=== PATIENT | male | born 1980 | race Caucasian/White ===

== ENCOUNTER 2023-05-12 06:33 | Inpatient (IN) | payer OTHER, SELFPAY ==
[2023-05-12] VITALS (48 sets, daily range): BP systolic 93–147; BP diastolic 64–116; PULSE 83–196; RESP 20–46; TEMP 36.4–36.9; O2SAT 84–99; BMI 37.9
--- NOTE | ~2023-05-12 | XR_ITS ---
Portable chest x-ray Comparison: None Clinical History: Dyspnea Findings: There is extensive hazy and interstitial pulmonary disease, most compatible with mild-to-m oderate pulmonary edema. No pleural effusion or pneumothorax. Cardiomediastinal silhouette is stable . Bones and soft tissues are unremarkable. Impression: Mild to moderate probable pulmonary edema pattern. Correlate for superimposed pneumonia or underlying chronic interstitial disease. Reviewed, dictated and finalized at location . Impression: Mild to moderate probable pulmonary edema pattern. Correlate for superimposed p neumonia or underlying chronic interstitial disease.
--- NOTE | ~2023-05-12 | US_ITS ---
EXAMINATION: US venous doppler [facility] DATE: 05/19/2023 15:34 INDICATION: Scrotal swelling. Recent dyspnea. TECHNIQUE: Grayscale ultrasound images without and with compression and Doppler ultrasound images of the bilateral lower extremity veins were obtained. COMPARISON: None. FINDINGS: The visualized portions of right common femoral vein, profunda (deep) femoral vein, femoral vein, pop liteal vein, posterior tibial veins, peroneal veins, gastrocnemius vein and greater saphenous vein ou tflow are patent. The visualized portions of left common femoral vein, profunda femoral vein, femoral vein, popliteal v ein, posterior tibial veins, peroneal veins, gastrocnemius vein and greater saphenous vein outflow ar e patent. IMPRESSION: 1. No deep venous thrombosis in either lower limb. Reviewed, dictated and finalized at location A.
--- NOTE | ~2023-05-12 | US_ITS ---
EXAMINATION: US scrotum doppler DATE: 05/19/2023 15:34 INDICATION: Scrotal swelling TECHNIQUE: Testicular sonogram utilizing grayscale and Doppler COMPARISON: None. FINDINGS: The right testis measures 4 x 1.7 x 3.1 cm. The left testis measures 3.7 x 2.4 x 2.1 cm. Th ere is a 7 mm cyst or spermatocele of the right epididymal head. There is normal vascular flow to bot h testes. The left epididymis is normal with normal vascular flow. There is a large right inguinal he rnia containing fluid and bowel. IMPRESSION: 1. Large right inguinal hernia containing fluid and bowel. Reviewed, dictated and finalized at location B.
--- NOTE | ~2023-05-12 | XR_ITS ---
Portable chest x-ray Comparison: 05/12/2023 Clinical History: CHF Findings: There is mild interstitial pulmonary edema pattern, improved from prior exam. No definite pleural effusion. Cardiomediastinal silhouette is stable. Bones and soft tissues are unremarkable. Impression: Mild interstitial pulmonary edema pattern, improved from prior exam. Reviewed, dictated and finalized at [facility]. Impression: Mild interstitial pulmonary edema pattern, improved from prior exam.
--- NOTE | 2023-05-12 06:41 | ECG_ITS ---
Measurements Intervals [place] Rate: 160 P: ND: 0 QRS: 25 QRSD: 109 T: 153 QT: 297 QTc: 484 Interpretive Statements ATRIAL FIBRILLATION WITH RAPID VENTRICULAR RESPONSE NONSPECIFIC ST & T-WAVE ABNORMALITY- DIFFUSE LEADS BASELINE ARTIFACT- I, II, AVR, AVL, AVF, V2-V4 ABNORMAL ECG NO PREVIOUS ECG AVAILABLE FOR COMPARISON Electronically Signed On 05-12-2023 6:55:00 CDT by Addy Roberts D.O.
--- NOTE | 2023-05-12 06:48 | ED.GENADULT ---
HPI - General Adult General Chief complaint: Shortness of Breath/Dyspnea <Felice Boyer MD - Last Filed: 05/12/23 06:50> Stated complaint: SOB <Felice Boyer MD - Last Filed: 05/12/23 06:50> Time Seen by Provider: 05/12/23 06:48 <Felice Boyer MD - Last Filed: 05/12/23 06:50> History of Present Illness HPI narrative: Patient 42-year-old gentleman who presents the emergency department with chief complaint of shortness of breath. Patient has prior history of fentanyl abuse and reports that today started getting very short of breath. The patient reports that he is having no chest pain but reports he just feels as though he just cannot get a good deep breath. EMS was called and found that it had a heart rate of in the 200s they gave him 5 mg of Lopressor in the field the patient does deny that he uses any cocaine. Patient reports that he does not do IV drugs and only does fentanyl by insufflation. Patient denies prior history of endocarditis or congestive heart failure <Felice Boyer MD - Last Filed: 05/12/23 06:50> Related Data Home medications: Home Medications Medication Instructions Recorded Confirmed No Home Medications 05/12/23 05/12/23 <Felice Boyer MD - Last Filed: 05/12/23 06:50> Allergies/adverse reactions: Allergies Allergy/AdvReac Type Severity Reaction Status Date / Time No Known Allergies Allergy Verified 05/12/23 06:58 <Felice Boyer MD - Last Filed: 05/12/23 06:50> Review of Systems Review of Systems: A 10 system review of systems was completed on the patient and is negative except for what is stated in the HPI. Nursing and ancillary documentation was reviewed. <Felice Boyer MD - Last Filed: 05/12/23 06:50> [facility] Past Medical History Medical History: Medical History (Updated 05/13/23 @ 11:11 by Claudia Diane MD) Alcohol abuse Depression with anxiety Elevated troponin Fentanyl use disorder, mild, abuse Hypertension Insomnia Left knee injury Nicotine abuse Pneumonia Psoriasis <Felice Boyer MD - Last Filed: 05/12/23 06:50> Surgical History Surgical History: Surgical History (Updated 05/12/23 @ 19:24 by Bonny King NP) H/O hernia repair <Felice Boyer MD - Last Filed: 05/12/23 06:50> Family History Family History: Family History (Updated 05/12/23 @ 19:25 by Bonny King NP) Unknown No problems noted. <Felice Boyer MD - Last Filed: 05/12/23 06:50> Social History Social History: Social History (Updated 05/12/23 @ 19:27 by Bonny King NP) Social History: The patient has 2 children. He lives alone and is . Patient is currently unemployed. He has a past history of fentanyl abuse. The patient continues to smoke at least a pack a cigarettes a day. The patient stated that he did not use any IV drugs rather he smoked them are started them. He denies any recent cocaine use. The patient admits to drinking 5 and half drinks of whiskey 3 times a week. He does not have a durable power floor scraper for healthcare Code status full code Smoking packs per day: 1 Smoking cigarettes per day: 20.0 Years smoked: 28 Smoking pack-years: 28.00 Smoking status: Current every day smoker Tobacco type: cigarettes Drinks per week: 60 Substance use: current Substance use type: marijuana Other substance usage details: 12 shots of 99proof wiskey every other day. Last use: MJ few weeks ago. ETOH 05/10/23 Lack of Transportation: No Lack of Food: Often True Current Housing: I Have Housing Concerned About Future Housing: YES Difficulty Paying Gas/Electric Bills: No Difficulty Paying for Meds: No Currently Unemployed: YES Education: Grade School Difficulty w/ Childcare or Family Care: No Spiritual care concerns: No <Felice Boyer MD - [facility]
[2023-05-12] MEDS: dilTIAZem HCl INJ 25 MG/5 ML VIAL 20 MG IV PUSH (06:54)
[2023-05-12 06:56] LABS: Basophils Absolute Auto 0.1 K/mm3 (0.0-0.1); Basophils Percent Auto 0.4 % (0.2-1.2); Eosinophils Absolute Auto 0.1 K/mm3 (0-0.3); Eosinophils Percent Auto 0.4 % (0-4.4); Hematocrit 42.3 % (42.0-52.0); Hemoglobin 14.2 g/dL (14.0-18.0); Immature Granulocyte Absolute 0.07 K/mm3 (0.00-0.031); Immature Granulocyte Percent A 0.5 % (0-0.5); Lymphocytes Absolute Auto 2.47 K/mm3 (0.9-3.2); Lymphocytes Percent Auto 17.8 % (18.3-44.2); Mean Corpuscular HGB Conc 33.6 g/dl (32-36); Mean Corpuscular Hemoglobin 36.4 pg (26-34); Mean Corpuscular Volume 108.5 fl (80-100); Mean Platelet Volume 12.4 fl (7.4-10.4); Monocytes Absolute Auto 0.7 K/mm3 (0.1-0.6); Monocytes Percent Auto 5.2 % (2.6-8.5); Neutrophils Absolute Auto 10.5 K/mm3 (1.3-6.7); Neutrophils Percent Auto 75.7 % (45.5-73.1); Platelet Count Result 161 k/mm3 (150-375); Red Cell Distribution Width 17.7 % (11.5-14.5); White Blood Count 13.9 K/mm3 (4.5-10.0)
[2023-05-12] MEDS: dilTIAZem 100 MG/100 ML 100 MG/100 ML BAG IV CONT (06:56)
[2023-05-12 07:06] LABS: Alveolar/Arterial O2 Gradient 172.3 mmHg; Base Excess ABG -4.8 mEq/l (+/-2.0); Fractional Inspired Oxygen 50 %; HCO3 ABG 18.1 mEq/l (22.0-26.0); Oxygen Content ABG 20.8 %vol (16.0-22.0); Oxyhemoglobin 95.7 % THb (90.0-100.0); PCO2 ABG 28.4 mmHg (35.0-45.0); PO2 ABG 152.3 mmHg (80.0-100.0); PO2 FiO2 Ratio Arterial Blood 3.05 %; Total Hemoglobin 15.3 g/dL (12.0-18.0); pH ABG 7.422 (7.350-7.450)
[2023-05-12 07:07] LABS: Device NON-INVASIVE VENT; Modified Allen's Test Pass; Non-Invasive Expiratory Pressure 7 CMH2O; Non-Invasive Inspiratory Pressure 14 CMH2O; Non-Invasive Vent Rate 16 /MIN; Site Drawn RIGHT RADIAL
[2023-05-12] MEDS: FUROSEMIDE INJ 40 MG/4 ML VIAL IV PUSH (07:07)
[2023-05-12 07:08] LABS: Alanine Aminotransferase 34 U/L (6-50); Albumin Level 3.7 g/dL (3.5-5.1); Alkaline Phosphatase 201 U/L (38-126); Anion Gap 18 mmol/L (8-16); Aspartate Amino Transferase 109 U/L (17-59); Blood Urea Nitrogen 6 mg/dL (9-20); Calcium 8.2 mg/dL (8.4-10.2); Carbon Dioxide 16 mmol/L (22-30); Chloride 104 mmol/L (98-107); Estimated CRCL calculation 130 ml/min; Estimated Glomerular Filt Rate > 60; Glucose 142 mg/dL (65-110); Magnesium 1.2 mg/dL (1.6-2.3); Potassium 3.4 mmol/L (3.4-5.0); Sodium 138 mmol/L (137-145)
[2023-05-12 07:10] LABS: INR 1.8; Prothrombin Time 21.6 Seconds (11.1-14.7)
[2023-05-12 07:11] LABS: Partial Thromboplastin Time 33.8 SECONDS (22.3-36.8)
[2023-05-12 07:19] LABS: NT Pro B Type Natriuretic Pept 24800 pg/mL (19.9-100)
[2023-05-12] MEDS: NITROGLYCERIN OINTMENT 1 INCH DOSE TRANSDERM ×3 (07:25→18:08)
[2023-05-12] MEDS: FUROSEMIDE INJ 40 MG/4 ML VIAL 60 MG IV PUSH (07:26)
--- NOTE | 2023-05-12 07:36 | PC.NURSE ---
This RN took over for patient at 0700. Upon initial assessment, pt short of breath at rest on bipap. Pt with labored breathing, accessory muscle use, retractions present. RR 48/min. Pt appeared tired, respiratory rate was becoming irregular. Pt was on dilt drip and was saying to RN that he was still having trouble breathing. Left lung very coarse, right side clear. RN concerned of patient condition, spoke with MD Cardenas who came to bedside. Bipap settings changed to 16/8, patient given additional furosemide, Diltiazem drip stopped at 07:20am per MD Cardenas. Nitro paste applied. Following change of bipap settings, pt a little more comfortable breathing. Rate now 39/min, pt verbalized slight improvement in work of breathing. Explained treatment plan to patient who verbalized understanding. Call light in patient's hand.
[2023-05-12 07:44] LABS: Procalcitonin 0.1 ng/mL
[2023-05-12 07:48] LABS: Influenza A QL RT-PCR Negative (Negative); Influenza B QL RT-PCR Negative (Negative); RSV RNA, RT-PCR Negative (Negative); SARS-CoV-2 RNA PCR Negative (Negative)
[2023-05-12] MEDS: dilTIAZem HCl INJ 25 MG/5 ML VIAL 15 MG IV PUSH (08:02)
[2023-05-12] MEDS: LORazepam INJ (*CRX) 2 MG/ML VIAL 1 MG IV PUSH (08:20)
--- NOTE | 2023-05-12 08:33 | PC.NURSE ---
Pt urinated 350ml via urinal. Asked patient about home medications, patient reports he knows he is supposed to take medications for high blood pressure and for depression, however he has no idea what medications he is supposed to be on. Reports he has not taken any medications for many years . MD Cardenas made aware, plan for Lovenox.
[2023-05-12] MEDS: ENOXAPARIN 120 MG/0.8 ML SYRINGE 110 MG SUB-Q (08:43)
[2023-05-12 09:21] LABS: Appearance Urine Clear (Clear); Bacteria Urine None Seen /hpf; Bilirubin Urine Negative (Negative); Blood Urine Negative (Negative); Color Urine Yellow (Yellow); Glucose Urine UA Negative (Negative); Ketones Urine Negative (Negative); Leukocyte Esterase Ur Negative LEU/UL (Negative); Nitrate Urine Negative (Negative); Non Pathogenic Casts 0-2; Protein Urine 1+ mg/dL (Negative); RBC Urine 0-2 /hpf (0-2); Specific Grav Ur 1.006 (1.001-1.035); Squamous Epithelial Cell Urine None seen /hpf (Few); Urobilinogen Urine 0.2 mg/dL (<2.0); WBC Urine 0-5 /hpf; pH Urine 5.5 (5.0-9.0)
[2023-05-12 09:22] LABS: Amphetamine Screen Urine Negative (Negative); Barbiturate Screen Urine Negative (Negative); Benzodiazepines Screen Urine Negative (Negative); Cannabinoid Screen Urine Negative (Negative); Cocaine Screen Urine Negative (Negative); Methadone Screen Urine Negative (Negative); Opiate Screen Urine Negative (Negative); Phencyclidine Screen Urine Negative (Negative)
[2023-05-12 09:25] LABS: Add Urine Microscopic? YES
--- NOTE | 2023-05-12 09:29 | PC.NURSE ---
Attempted to call report, RN will return call when she gets off the phone.
--- NOTE | 2023-05-12 09:44 | PC.NURSE ---
Pt appears comfortable, breathing is unlabored, able to speak short sentences with bipap on. Pt has phone in hand, asked RN to turn light off. Per MD Cardenas, do not increase diltiazem drip at this time, plan for cardiology consult.
[2023-05-12 09:54] LABS: Reflex Lactic Acid Yes or No Add Lactic
--- NOTE | 2023-05-12 10:07 | ADMGEN ---
This patient, Vincent Rivera, was admitted to Virtual Bed IMU-1. Patient/family oriented to hospital policies and general routines including ID bracelet, bed and alarms, visiting hours, pain management, procedures, bathroom and other care routines, personal items, smoking policy, room service/diet, and visiting hours. Information on how to activate the Rapid Response Team has been discussed. Patient/Family are encouraged to report perceived risks to care and to ask questions if they do not understand what they are told or what they should do.
[2023-05-12 10:20] LABS: Troponin I 0.058 ng/mL (0.000-0.034)
[2023-05-12 10:45] LABS: Lactic Acid 4.5 mmol/L (0.7-2.0)
[2023-05-12] MEDS: ONDANSETRON INJ 4 MG/2 ML VIAL IV PUSH (11:52)
[2023-05-12 13:04] LABS: Lactic Acid Reflex 3.7 mmol/L (0.7-2.0)
--- NOTE | 2023-05-12 13:08 | PM.CNCAR ---
Assessment and Plan Assessment and plan (1) Congestive heart failure: Qualifiers: Heart failure chronicity: unspecified Heart failure type: unspecified Qualified Code(s): I50.9 - Heart failure, unspecified Code(s): I50.9 - Heart failure, unspecified Status: Acute Assessment and Plan: Presents with acute onset of shortness of breath, CXR showing pulmonary [place]. [place] [address]. Symptomatic improvement after receiving IV furosemide, nitroglycerin, and BiPAP support. Continue diuresis with IV furosemide 40mg b.i.d. 2D echo with Doppler Supplemental O2 as needed Strict I&O Daily weights Daily BMP while diuresing (2) Atrial fibrillation with rapid ventricular response: Code(s): I48.91 - Unspecified atrial fibrillation Status: Acute Assessment and Plan: This is a new diagnosis. Presented in atrial fibrillation with RVR, rate 160 bpm. He denies any history of palpitations, chest pain, shortness of breath. Chronicity of this is unknown. Probably secondary to alcohol and drug use. Will pursue rate control strategy since amount of time in atrial fibrillation is unknown and he is asymptomatic Continue diltiazem gtt at 15mg/hr for now Lopressor 5mg IV p.r.n. for persistent tachycardia >140 If he is unable to be rate controlled, can consider SHARAD guided DCCV on Monday His [id number] score is 2 (HTN, CHF), anticoagulation is indicated. However, not the best candidate for a/c from a bleeding risk perspective as he is an active alcoholic and Fentanyl user. Appropriateness for correction a/c needs to be determined before discharge. Continue lovenox for now. Check apnea link Check TSH History of Present Illness History of Present Illness Consult date/time: 05/12/23 13:08 Requesting physician: Geovanna Cardenas MD Consult reason: atrial fibrillation and congestive heart failure Reason For Visit: CHF/Afib with RVR/Noncompliance w His Medications Narrative: Mr. Rivera Is a 42-year-old male with a medical history of hypertension and polysubstance abuse. This is a patient who presented to the emergency department today following a abrupt onset of severe shortness of breath. Patient states that he went to bed last night in his usual state of health, woke up this morning to smoke a cigarette, when he was finished smoking a cigarette he laid back down and began to experience significant shortness of breath. The patient states that he felt like he was going to at which point he called 911. When he arrived at the emergency department he was significantly hypoxic and in respiratory distress. He was started on BiPAP. He was also noted to be in atrial fibrillation with rapid ventricular response with a rate in the 160's. He denies experiencing any chest pain or palpitations. He does tell me that his lower legs have been swollen for the past 6-8 months. He denies orthopnea, syncope, presyncope, paroxysmal nocturnal dyspnea. Currently, he is breathing comfortably on nasal cannula oxygen and states that he is feeling much better. Review of Systems Review of Systems: All systems reviewed & are unremarkable except as noted in HPI and below PMFSH Social History Social History Smoking packs per day: 1 Smoking cigarettes per day: 20.0 Years smoked: 28 Smoking pack-years: 28.00 Smoking status: Current every day smoker Tobacco type: cigarettes Drinks per week: 60 Substance use: current Substance use type: marijuana Other substance usage details: 12 shots of 99proof wiskey every other day. Last use: MJ few weeks ago. ETOH 05/10/23 Lack of Transportation: No Lack of Food: Often True Current Housing: I Have Housing Concerned About Future Housing: YES Difficulty Paying Gas/Electric Bills: No Difficulty Paying for Meds: No Currently Unemployed: YES Education: Grade School Difficulty w/ Childcare o
[2023-05-12] MEDS: AZITHROMYCIN 500 MG/NS 250 ML 500 MG/250 ML BAG 250 MG IVPB (13:17)
[2023-05-12 13:19] LABS: Troponin I 0.081 ng/mL (0.000-0.034)
--- NOTE | 2023-05-12 13:35 | PM.IMHP ---
H&P: HPI History of Present Illness Date/Time: 05/12/23 13:35 Chief Complaint: Shortness of breath Narrative: This is a 42-year-old gentleman who has a history of fentanyl drug abuse. The patient came to the emergency room with complaint of shortness of breath. The patient denies any IV drug use. The patient stated he has not used fentanyl and a long time. Patient also denies any use use of cocaine. The patient stated he is not having any chest pain but feels as though he cannot catch his breath. He stated he cannot get a deep breath. When EMS arrived they found that he had a heart rate in the 200s. The patient was given IV Lopressor in the field. The patient denies any prior history of atrial fibrillation, congestive heart failure endocarditis. Chest x-ray was read as mild to moderate probable pulmonary edema pattern correlate for superimposed pneumonia or underlying chronic interstitial disease. The patient was started on a Cardizem drip after an IV push of diltiazem. The patient was given IV Lasix. He was given nitroglycerin, Ativan and subcu Lovenox. His EKG was read as AFib with RVR. Cardiology has been consulted. White count 13.9. Neutrophil percentage 75.7% ABGs pH 7.42 to CO2 was 28.4 PO2 was 152.3. Bicarb 18.1. The patient was placed on oxygen at 4 L per nasal cannula. The patient initially had been on a BiPAP machine but was taken off. The patient was started on azithromycin and Rocephin. The patient is being admitted to inpatient status on the date of service of 05/12/2023. Review of Systems Review of Systems: All systems reviewed & are unremarkable except as noted in HPI and below Constitutional: Constitutional: Reports as per HPI and Reports no additional constitutional complaints Eyes: Eyes: Reports as per HPI and Reports no additional eye complaints ENT: Reports system reviewed and no additional complaints, except as documented and Reports Normal hearing present Cardiovascular: Cardiovascular: Reports no additional cardiovascular complaints Respiratory: Respiratory: Reports no additional respiratory complaints and Reports no additional respiratory complaints Gastrointestinal: Gastrointestinal: Reports as per HPI and Reports no additional gastrointestinal complaints Musculoskeletal: Musculoskeletal: Reports no additional musculoskeletal complaints Integumentary/Breasts: Skin/Breast: Reports system reviewed and no additional complaints, except as docu and Reports as per HPI Neurologic: Reports system reviewed and no additional complaints, except as documented, Reports as per HPI and Reports Normal hearing present Psychiatric: Psychiatric: Reports no additional psychiatric complaints and Reports as per HPI Endocrine: Endocrine: Reports no additional endocrine complaints Hematologic/Lymphatic: Hematologic/Lymphatic: Reports no additional hematologic/lymphatic complaints Allergic/Immunologic: Allergic/Immunologic: Reports no additional allergic/immunologic complaints [facility] Past Medical History Medical History (Updated 05/12/23 @ 19:39 by Bonny King NP) Alcohol abuse Depression with anxiety Elevated troponin Fentanyl use disorder, mild, abuse Hypertension Insomnia Left knee injury Nicotine abuse Pneumonia Psoriasis Surgical History Surgical History (Updated 05/12/23 @ 19:24 by Bonny King NP) H/O hernia repair Family History Family History (Updated 05/12/23 @ 19:25 by Bonny King NP) Unknown No problems noted. Social History Social History (Updated 05/12/23 @ 19:27 by Bonny King NP) Social History: The patient has 2 children. He lives alone and is . Patient is currently unemployed. He has a past history of fentanyl abuse. The patient continues to smoke at least a pack a cigarettes a day. The patient stated that he did not use any IV drugs rather he smoked them are started them. He denies any recent cocaine use. The patient admits to drinki
[2023-05-12] MEDS: dilTIAZem 100 MG/100 ML 100 MG/100 ML BAG 15 MG IV CONT ×2 (14:57→21:25)
[2023-05-12 17:39] LABS: Anion Gap 4 mmol/L (8-16); Blood Urea Nitrogen 11 mg/dL (9-20); Calcium 7.8 mg/dL (8.4-10.2); Carbon Dioxide 30 mmol/L (22-30); Chloride 102 mmol/L (98-107); Estimated CRCL calculation 119 ml/min; Estimated Glomerular Filt Rate > 60; Glucose 123 mg/dL (65-110); Potassium 3.7 mmol/L (3.4-5.0); Sodium 136 mmol/L (137-145)
[2023-05-12] MEDS: CLOBETASOL PROPIONATE 0.05% OINT 30 GM 1 APPLIC TOPICAL (21:25)
[2023-05-12] MEDS: chlordiazePOXIDE (*CRX) 25 MG CAPSULE PO (21:26)
[2023-05-12] MEDS: ENOXAPARIN 120 MG/0.8 ML SYRINGE 114 MG SUB-Q (21:26)
[2023-05-13] VITALS (25 sets, daily range): BP systolic 94–115; BP diastolic 63–79; PULSE 75–113; RESP 12–26; TEMP 36.4–36.8; O2SAT 91–100
[2023-05-13] MEDS: NITROGLYCERIN OINTMENT 1 INCH DOSE TRANSDERM ×4 (00:17→17:34)
--- NOTE | 2023-05-13 00:44 | PCRCNOTE ---
Apnea link was ordered for pt on 05/12/2023 at 1331. Rt contacted nurse at 2200 regarding the link. 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 Pt wearing bipap this evening and will try apnea link the evening of 05/13/2023.
[2023-05-13 00:45] LABS: Glucose Point of Care 124 mg/dl (65-105)
[2023-05-13] MEDS: MAGNESIUM SULF 2 GM/WATER 50ML 2 GM/50 ML BAG IVPB (02:34)
[2023-05-13] MEDS: dilTIAZem 100 MG/100 ML 100 MG/100 ML BAG 15 MG IV CONT ×2 (03:39→09:45)
[2023-05-13] MEDS: chlordiazePOXIDE (*CRX) 25 MG CAPSULE PO ×2 (03:41→21:35)
[2023-05-13 05:11] LABS: Alanine Aminotransferase 26 U/L (6-50); Albumin Level 2.6 g/dL (3.5-5.1); Alkaline Phosphatase 128 U/L (38-126); Anion Gap 2 mmol/L (8-16); Aspartate Amino Transferase 74 U/L (17-59); Bilirubin,Total 6.3 mg/dL (0.2-1.3); Blood Urea Nitrogen 15 mg/dL (9-20); Calcium 7.3 mg/dL (8.4-10.2); Carbon Dioxide 30 mmol/L (22-30); Chloride 98 mmol/L (98-107); Estimated CRCL calculation 121 ml/min; Estimated Glomerular Filt Rate > 60; Glucose 96 mg/dL (65-110); Magnesium 1.4 mg/dL (1.6-2.3); Potassium 3.2 mmol/L (3.4-5.0); Sodium 130 mmol/L (137-145)
[2023-05-13 05:12] LABS: Lactic Acid Reflex 1.2 mmol/L (0.7-2.0)
--- NOTE | 2023-05-13 06:00 | ECHO_ITS ---
Patient Info Name: Vincent Rivera Age: 42 years : 1980 Gender: Male Ht: 70 in Wt: 264 lbs BSA: 2.48 m2 HR: 97 bpm BP: 99 / 63 mmHg Heart Rhythm: Sinus Rhythm Technical Quality: Good Exam Date: 05/13/2023 9:41 AM Exam Location: [facility] Patient Status: Inpatient Admit Date: 05/12/2023 Staff Ordering Physician: Geovanna Cardenas MD Hog Sticker: Praveen Emerson RDCS Attending Provider: Adolfo Huston MD Exam Type: CA echo dop color flow w con Study Info Indications - CHF Complete two-dimensional, color flow and Doppler transthoracic echocardiogram is performed with contrast to opacify the left ventricle and to improve the deliniation of the left ventricle endocardial borders. Contrast/Agitated Saline Contrast/Ag. Saline: Definity Amount: 3.00 ml Summary 1. Moderate left ventricular enlargement with normal wall thickness. Severe global hypokinesis, with EF of 30-35%. Diastolic dysfunction is present. 2. Left atrial chamber dimension is moderately enlarged. 3. There is mild mitral valve regurgitation. 4. There is mild tricuspid valve regurgitation. 5. Dilated inferior vena cava with <50% collapse upon inspiration consistent with significantly elevated right atrial pressure, 20 mmHg. 6. No pulmonary hypertension, estimated pulmonary arterial systolic pressure is 39 mmHg. 7. Normal sinus rhythm. Left Ventricle Left ventricular chamber dimension is moderately enlarged. Left ventricular systolic function is severely reduced, estimated at 30-35%. There is no increased left ventricular wall thickness. Left ventricular septal wall motion is normal. The left ventricular diastolic function is abnormal. Right Ventricle Right ventricular chamber dimension is normal. Right ventricular systolic function is normal. Left Atria Left atrial chamber dimension is moderately enlarged. Right Atria Right atrial chamber dimension is normal. Aortic Valve The aortic valve is trileaflet. There is no aortic valve sclerosis. There is no aortic valve stenosis. There is no aortic valve regurgitation. Pulmonic Valve The pulmonic valve is normal. There is no pulmonic valve stenosis. There is no pulmonic regurgitation. Mitral Valve The mitral valve has normal leaflets. There is no mitral valve stenosis. There is mild mitral valve regurgitation. Tricuspid Valve The tricuspid valve leaflets are normal. There is no significant tricuspid valve stenosis. There is mild tricuspid valve regurgitation. Mild pulmonary hypertension, estimated pulmonary arterial systolic pressure is 39 mmHg. Pericardium/Pleural The pericardium appears normal. There is no pericardial effusion. Inferior Vena Cava Dilated inferior vena cava with <50% collapse upon inspiration consistent with significantly elevated right atrial pressure, 20 mmHg. Aorta The aortic root size at the sinus of Valsalva is normal. The prox ascending aorta size is normal. Left Ventricular Outflow Tract Name Value Normal LVOT 2D LVOT Diameter 2.20 cm LVOT Doppler LVOT Peak Gradient 5 mmHg LVOT Mean Gradient 2 mmHg LVOT VTI
[2023-05-13 06:51] LABS: Basophils Percent Auto 0.1 % (0.2-1.2); Eosinophils Absolute Auto 0.1 K/mm3 (0-0.3); Eosinophils Percent Auto 0.8 % (0-4.4); Hematocrit 33.4 % (42.0-52.0); Hemoglobin 11.5 g/dL (14.0-18.0); Immature Granulocyte Absolute 0.03 K/mm3 (0.00-0.031); Immature Granulocyte Percent A 0.4 % (0-0.5); Immature Platelet Fraction Pct 9.6 % (0.9-11.2); Lymphocytes Absolute Auto 1.95 K/mm3 (0.9-3.2); Lymphocytes Percent Auto 26.4 % (18.3-44.2); Mean Corpuscular HGB Conc 34.4 g/dl (32-36); Mean Corpuscular Hemoglobin 37.1 pg (26-34); Mean Corpuscular Volume 107.7 fl (80-100); Mean Platelet Volume 12.1 fl (7.4-10.4); Monocytes Absolute Auto 0.6 K/mm3 (0.1-0.6); Monocytes Percent Auto 7.9 % (2.6-8.5); Neutrophils Absolute Auto 4.8 K/mm3 (1.3-6.7); Neutrophils Percent Auto 64.4 % (45.5-73.1); Platelet Count Result 94 k/mm3 (150-375); Red Cell Distribution Width 17.3 % (11.5-14.5); White Blood Count 7.4 K/mm3 (4.5-10.0)
[2023-05-13 07:29] LABS: Anisocytosis 1+ (NORMAL); Macrocytosis 1+ (NORMAL); Platelet Estimate Decreased (Adequate); Schistocytes None Seen (NORMAL)
[2023-05-13] MEDS: CLOBETASOL PROPIONATE 0.05% OINT 30 GM 1 APPLIC TOPICAL ×2 (08:27→21:30)
[2023-05-13] MEDS: THIAMINE HCL 200 MG/2 ML VIAL 100 MG IV PUSH (08:27)
[2023-05-13] MEDS: FOLIC ACID 1 MG/0.2 ML INJ IV PUSH (08:27)
[2023-05-13] MEDS: PERFLUTREN LIPID MICROSPHERES 1.5 ML VIAL DILUTED TO 10 ML TOTAL VOLUME IV PUSH (09:45)
--- NOTE | 2023-05-13 10:30 | PM.PNCARD ---
Progress Note: A&P Assessment and Plan (1) Atrial fibrillation with rapid ventricular response: Code(s): I48.91 - Unspecified atrial fibrillation Status: Acute Assessment and Plan: New onset of AFib RVR, rate now controlled on diltiazem drip at 15 milligrams/hour. Unclear if the patient is a good candidate for long-term anticoagulation; depends on CHADS2 Vasc score/echo etc.. He does have underlying liver disease with an INR already of 1.8 so would be at bleeding risk as well. --try switching Cardizem drip to p.o. metoprolol 25 mg q.6 hours --currently anticoagulated with Lovenox. --counseled patient about atrial fibrillation, likely recurrence of symptoms if not treated chronically (2) Congestive heart failure: Qualifiers: Heart failure chronicity: unspecified Heart failure type: unspecified Qualified Code(s): I50.9 - Heart failure, unspecified Code(s): I50.9 - Heart failure, unspecified Status: Acute Assessment and Plan: Acute CHF, improved with heart rate control but not diuresing much. Soft blood pressure limits therapy. Had mildly elevated troponins but no chest pain and no ischemic EKG changes on admission. Doubt ACS, likely a troponin spill due to nonischemic myocardial injury (AFib RVR and CHF) --echo pending --try to diurese as blood pressure tolerates, increase furosemide to 60 mg IV push b.i.d. --consider apnea Link prior to DC --patient counseled about CHF and risk of recurrence/relapses (3) Alcohol abuse: Code(s): F10.10 - Alcohol abuse, uncomplicated Status: Acute Assessment and Plan: History of alcohol abuse. No DTs as yet. (4) Hypokalemia: Code(s): E87.6 - Hypokalemia Status: Acute Assessment and Plan: Hypokalemia and hypomagnesia noted --supplement and recheck tmr. (5) Elevated bilirubin: Code(s): R17 - Unspecified jaundice Status: Acute Assessment and Plan: Bilirubin was 7 on adm, mild elevation of LFTs, no abdominal pain. Most likely alcoholic hepatitis. --check for viral hepatitis? --patient advised to discontinue alcohol. Patient says it will be a slow process. Subjective Date/time seen: 05/13/23 10:30 Interval history: Follow-up for AFib RVR (160 -190's on admission), acute CHF, elevated troponins, elevated LFTs with a bilirubin of 6. Started on a Cardizem drip on admission. History of substance abuse, hypertension. Date of service 05/13/2023: Patient reports he is breathing a lot better, no longer feels like he is suffocating. Off BiPAP and now on nasal cannula O2. Does not appear to have diuresed much, I's and O's 960/1180 (eisenberg) yesterday, 2300/600 today. Sometimes BP runs low, 88-90s systolic. Patient surprised that he will not be discharged today as he had hoped. Telemetry: AFib rate 90-105 Review of Systems Review of Systems: No chest pain, breathing is better, ongoing swelling, had some nausea yesterday, on sure if he has had weight gain but belt size 1 output over the last few months from 36-38 inches. Exam Const: General: cooperative and comfortable; No confusion Orientation/consciousness: oriented to person, patient oriented x3 and No confusion Other: Lying at 30? in no distress HENMT: Mouth: Yes moist mucous membranes Other: Dentition in poor repair Eyes: General: appearance normal, both eyes and all related structures Sclera: scleral abnormality (Mild jaundice) Neck: Neck: supple Resp: Effort & Inspection: normal respiratory effort Auscultation: crackles (1/3 up bilaterally) Cardio: Rate: regular rate Rhythm: regular rhythm and abnormal rhythm irregularly irregular GI: Inspection: distended GI Palp: No abdominal tenderness Other: Probable ascites, some edema of the abdominal wall Skin: Lesions: lesion noted Other: Hyperpigmentation and orange-peel thickening of the lower extremity skin Neuro: General: oriente
[2023-05-13] MEDS: POTASSIUM CHLORIDE 20 MEQ ER TABLET 40 MEQ PO (11:56)
[2023-05-13] MEDS: METOPROLOL TARTRATE 25 MG TABLET PO ×2 (11:56→23:22)
[2023-05-13] MEDS: FUROSEMIDE INJ 40 MG/4 ML VIAL 60 MG IV PUSH (11:57)
[2023-05-13 12:37] LABS: Glucose Point of Care 141 mg/dl (65-105)
[2023-05-13] MEDS: AZITHROMYCIN 500 MG/NS 250 ML 500 MG/250 ML BAG 250 MG IVPB (13:05)
[2023-05-13 15:01] LABS: Anion Gap 3 mmol/L (8-16); Blood Urea Nitrogen 17 mg/dL (9-20); Calcium 7.6 mg/dL (8.4-10.2); Carbon Dioxide 31 mmol/L (22-30); Chloride 98 mmol/L (98-107); Estimated CRCL calculation 136 ml/min; Estimated Glomerular Filt Rate > 60; Glucose 112 mg/dL (65-110); Potassium 3.6 mmol/L (3.4-5.0); Sodium 132 mmol/L (137-145)
--- NOTE | 2023-05-13 15:04 | WPDPN ---
Progress Note: A&P Assessment and Plan (1) Elevated troponin: Code(s): R77.8 - Other specified abnormalities of plasma proteins Status: Acute Assessment and Plan: Initial troponin was negative. Second troponin 0.058 and 3rd troponin 0.081. This could be related to the AFib RVR. This could also be related to congestive heart failure. An echo has been ordered. Cardiology has been consulted. 05/13/2023 interval history: patient with history of alcohol abuse, illicit drug use and morbid obesity presented with shortness of breath suspect patient has acute on [place] [address] patient is being diuresed with lasix 40mg IV BID, etiology is uncertain, cardiac echo is ordered and pending, patient also has elevated tropes most likely demand ischemia unlikely acute coronary syndrome, patient stats he is feeling better compare to when he arrived and not as short of breath, patient stats he drinks almost every day, will monitor with CIWA protocol while in the hospital. will have PT/OT evaluate the patient. (2) Pneumonia: Code(s): J18.9 - Pneumonia, unspecified organism Status: Acute Assessment and Plan: The patient was started on azithromycin with Rocephin as per antibiotic stewardship for pneumonia. Sputum and blood cultures are pending. I did not start any nebulizer treatments as patient's heart rate is already elevated. The patient is currently on 4 L per nasal cannula. ABGs have been obtained. The patient was on a BiPAP but was weaned off to 4 L per nasal cannula. May also consider a sleep study when the patient is more stable. (3) Atrial fibrillation with rapid ventricular response: Code(s): I48.91 - Unspecified atrial fibrillation Status: Acute Assessment and Plan: The patient is currently on subcu Lovenox and on a Cardizem drip. (4) Congestive heart failure: Qualifiers: Heart failure chronicity: unspecified Heart failure type: unspecified Qualified Code(s): I50.9 - Heart failure, unspecified Code(s): I50.9 - Heart failure, unspecified Status: Acute Assessment and Plan: An echo has been ordered. The patient is on nitroglycerin. (5) Insomnia: Code(s): G47.00 - Insomnia, unspecified Status: Acute Assessment and Plan: May consider sleep study with the apnea link when the patient is more stable. (6) Hypertension: Code(s): I10 - Essential (primary) hypertension Status: Acute Assessment and Plan: The patient stated that he was diagnosed with hypertension in the past but has been noncompliant with medications. (7) Nicotine abuse: Code(s): Z72.0 - Tobacco use Status: Acute Assessment and Plan: The patient's continues to smoke a pack a cigarettes a day. He was requesting a nicotine patch. However I explained that the nicotine could be is stimulate and I did not feel comfortable giving him a nicotine patch at this time. However when he is more stable may consider giving him a nicotine patch. (8) Alcohol abuse: Code(s): F10.10 - Alcohol abuse, uncomplicated Status: Acute Assessment and Plan: Liver enzymes are elevated. I explained that the patient needs to stop drinking. The patient stated that he is weaning it down and not drinking as much. The patient stated that he has gone days without drinking and has not had any withdrawal symptoms. The patient stated he is last drink was 2 days ago. Continue with CIWA. He has p.r.n. Librium and Ativan. Continue with folic acid and thiamin. (9) Fentanyl use disorder, mild, abuse: Code(s): F11.10 - Opioid abuse, uncomplicated Status: Acute Assessment and Plan: His toxicology screen was found to be negative. The patient stated that he used to smoke fentanyl and that he did not ever use any IV drugs. (10) Depression with anxiety: Code(s): F41.8 - Other specified anxiety
[2023-05-13 17:58] LABS: Glucose Point of Care 161 mg/dl (65-105)
[2023-05-13] MEDS: NICOTINE (*PBKC) 21 MG PATCH 1 PATCH TRANSDERM (21:50)
[2023-05-13 23:24] LABS: Glucose Point of Care 100 mg/dl (65-105)
[2023-05-14] VITALS (23 sets, daily range): BP systolic 93–101; BP diastolic 57–67; PULSE 68–110; RESP 16–20; TEMP 36.2–36.6; O2SAT 90–100
[2023-05-14 05:17] LABS: Magnesium 1.3 mg/dL (1.6-2.3)
[2023-05-14] MEDS: METOPROLOL TARTRATE 25 MG TABLET PO (05:24)
[2023-05-14 08:22] LABS: Anion Gap 1 mmol/L (8-16); Blood Urea Nitrogen 18 mg/dL (9-20); Calcium 7.8 mg/dL (8.4-10.2); Carbon Dioxide 31 mmol/L (22-30); Chloride 97 mmol/L (98-107); Estimated CRCL calculation 136 ml/min; Estimated Glomerular Filt Rate > 60; Glucose 90 mg/dL (65-110); Potassium 3.5 mmol/L (3.4-5.0); Sodium 129 mmol/L (137-145)
--- NOTE | 2023-05-14 08:23 | PC.NURSE ---
pt noted to have hypotension. pt is asymptomatic. Lasix 60mg BID ordered. Spoke to Dr. Huston about hypotension. Per MD, decrease 60mg IV lasix to 20mg IV lasix for this AM.
[2023-05-14 08:44] LABS: Hematocrit 37.1 % (42.0-52.0); Hemoglobin 12.5 g/dL (14.0-18.0); Immature Platelet Fraction Pct 11.3 % (0.9-11.2); Mean Corpuscular HGB Conc 33.7 g/dl (32-36); Mean Corpuscular Hemoglobin 36.9 pg (26-34); Mean Corpuscular Volume 109.4 fl (80-100); Mean Platelet Volume 12.4 fl (7.4-10.4); Platelet Count Result 106 k/mm3 (150-375); Red Blood Count 3.39 M/mm3 (4.6-6.20); Red Cell Distribution Width 17.2 % (11.5-14.5); White Blood Count 6.9 K/mm3 (4.5-10.0)
[2023-05-14] MEDS: CLOBETASOL PROPIONATE 0.05% OINT 30 GM 1 APPLIC TOPICAL ×2 (09:48→21:22)
[2023-05-14] MEDS: ENOXAPARIN 120 MG/0.8 ML SYRINGE 114 MG SUB-Q ×2 (09:48→21:21)
[2023-05-14] MEDS: FUROSEMIDE INJ 40 MG/4 ML VIAL 20 MG IV PUSH ×2 (09:48→16:20)
[2023-05-14] MEDS: FOLIC ACID 1 MG/0.2 ML INJ IV PUSH (09:48)
[2023-05-14] MEDS: THIAMINE HCL 200 MG/2 ML VIAL 100 MG IV PUSH (09:48)
[2023-05-14] MEDS: MAGNESIUM OXIDE 400 MG TABLET PO (09:48)
[2023-05-14] MEDS: MAGNESIUM SULF 2 GM/WATER 50ML 2 GM/50 ML BAG IVPB (09:49)
--- NOTE | 2023-05-14 09:50 | WPDPN ---
Progress Note: A&P Assessment and Plan (1) Elevated troponin: Code(s): R77.8 - Other specified abnormalities of plasma proteins Status: Acute Assessment and Plan: Initial troponin was negative. Second troponin 0.058 and 3rd troponin 0.081. This could be related to the AFib RVR. This could also be related to congestive heart failure. An echo has been ordered. Cardiology has been consulted. 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 will have PT/OT evaluate the patient. (2) Pneumonia: Code(s): J18.9 - Pneumonia, unspecified organism Status: Acute Assessment and Plan: The patient was started on azithromycin with Rocephin as per antibiotic stewardship for pneumonia. Sputum and blood cultures are pending. I did not start any nebulizer treatments as patient's heart rate is already elevated. The patient is currently on 4 L per nasal cannula. ABGs have been obtained. The patient was on a BiPAP but was weaned off to 4 L per nasal cannula. May also consider a sleep study when the patient is more stable. (3) Atrial fibrillation with rapid ventricular response: Code(s): I48.91 - Unspecified atrial fibrillation Status: Acute Assessment and Plan: The patient is currently on subcu Lovenox and on a Cardizem drip. (4) Congestive heart failure: Qualifiers: Heart failure chronicity: unspecified Heart failure type: unspecified Qualified Code(s): I50.9 - Heart failure, unspecified Code(s): I50.9 - Heart failure, unspecified Status: Acute Assessment and Plan: An echo has been ordered. The patient is on nitroglycerin. (5) Insomnia: Code(s): G47.00 - Insomnia, unspecified Status: Acute Assessment and Plan: May consider sleep study with the apnea link when the patient is more stable. (6) Hypertension: Code(s): I10 - Essential (primary) hypertension Status: Acute Assessment and Plan: The patient stated that he was diagnosed with hypertension in the past but has been noncompliant with medications. (7) Nicotine abuse: Code(s): Z72.0 - Tobacco use Status: Acute Assessment and Plan: The patient's continues to smoke a pack a cigarettes a day. He was requesting a nicotine patch. However I explained that the nicotine could be is stimulate and I did not feel comfortable giving him a nicotine patch at this time. However when he is more stable may consider giving him a nicotine patch. (8) Alcohol abuse: Code(s): F10.10 - Alcohol abuse, uncomplicated Status: Acute Assessment and Plan: Liver enzymes are elevated. I explained that the patient needs to stop drinking. The patient stated that he is weaning it down and not drinking as much. The patient stated that he has gone days without drinking and has not had any withdrawal symptoms. The patient stated he is last drink was 2 days ago. Continue with CIWA. He has p.r.n. Librium and Ativan. Continue with folic acid and thiamin. (9) Fentanyl use disorder, mild, abuse: Code(s): F11.10 - Opioid abuse, uncomplicated Status: Acute Assessment and Plan: His to
[2023-05-14 11:41] LABS: Glucose Point of Care 102 mg/dl (65-105)
[2023-05-14] MEDS: AZITHROMYCIN 500 MG/NS 250 ML 500 MG/250 ML BAG 250 MG IVPB (12:06)
--- NOTE | 2023-05-14 14:28 | PM.PNCARD ---
Progress Note: A&P Assessment and Plan (1) Atrial fibrillation with rapid ventricular response: Code(s): I48.91 - Unspecified atrial fibrillation Status: Acute Assessment and Plan: New onset of AFib RVR, rate now controlled on po metoprolol. Unclear if the patient is a good candidate for long-term anticoagulation; depends on CHADS2 Vasc score/echo etc.. He does have underlying liver disease with an INR already of 1.8 so would be at bleeding risk as well. --Reduce metop to 12.5 mg Q8H since he is missing doses due to low BP --currently anticoagulated with Lovenox. --counseled patient about atrial fibrillation, likely recurrence of symptoms if not treated chronically (2) Congestive heart failure: Qualifiers: Heart failure chronicity: unspecified Heart failure type: unspecified Qualified Code(s): I50.9 - Heart failure, unspecified Code(s): I50.9 - Heart failure, unspecified Status: Acute Assessment and Plan: Acute CHF, improved with heart rate control but not diuresing much. Soft blood pressure limits therapy. Had mildly elevated troponins but no chest pain and no ischemic EKG changes on admission. Doubt ACS, likely a troponin spill due to nonischemic myocardial injury (AFib RVR and CHF) --try to diurese as blood pressure tolerates, furosemide 20 mg IV push b.i.d. 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 --will be difficult to use usual medications due to low blood pressure --continue metoprolol --add spironolactone 12.5 mg daily --try adding Jardiance 10 mg a day --Add losartan at a later date; unlikely to tolerate Entresto (4) Alcohol abuse: Code(s): F10.10 - Alcohol abuse, uncomplicated Status: Acute Assessment and Plan: History of alcohol abuse. No DTs as yet. Recommended cessation. (5) Hypokalemia: Code(s): E87.6 - Hypokalemia Status: Acute Assessment and Plan: Hypokalemia and hypomagnesia noted --Cont to supplement (6) Elevated bilirubin: Code(s): R17 - Unspecified jaundice Status: Acute Assessment and Plan: Bilirubin was 7 on adm, mild elevation of LFTs, no abdominal pain. Most likely alcoholic hepatitis. --check for viral hepatitis? --patient advised to discontinue alcohol. Patient says it will be a slow process. Lives alone; No one around to tell him not to drink. Subjective Date/time seen: 05/14/23 14:28 Interval history: Follow-up for AFib RVR (160 -190's on admission), acute CHF, elevated troponins, elevated LFTs with a bilirubin of 6. Started on a Cardizem drip on admission. History of substance abuse, hypertension. Date of service 05/13/2023: Patient reports he is breathing a lot better, no longer feels like he is suffocating. Off BiPAP and now on nasal cannula O2. Does not appear to have diuresed much, I's and O's 960/1180 (eisenberg) yesterday, 2300/600 today. Sometimes BP runs low, 88-90s systolic. Patient surprised that he will not be discharged today as he had hoped. Date of service 05/14/2023: Feeling anxious due to bedrest, requests something for anxiety. Soft blood pressure, systolic 94-115. Has not received much Lasix, did tolerate a dose of 20 mg this morning with a good response. Nitro paste hold due to soft blood pressure. Also sometimes his metoprolol is held due to low blood pressure. On 3 L nasal cannula. I's and O's yesterday: 2800 in, 1200 out. Echo showed ejection fraction of 30-35%. Review of Systems Review of Systems: No chest pain, breathing is better, on
[2023-05-14] MEDS: chlordiazePOXIDE (*CRX) 25 MG CAPSULE PO ×2 (16:20→22:24)
[2023-05-14] MEDS: METOPROLOL TARTRATE 12.5 MG TABLET PO ×2 (16:20→22:24)
[2023-05-14] MEDS: POTASSIUM CHLORIDE 20 MEQ ER TABLET PO (16:21)
[2023-05-14 18:24] LABS: Glucose Point of Care 141 mg/dl (65-105)
[2023-05-14] MEDS: NICOTINE (*PBKC) 21 MG PATCH 1 PATCH TRANSDERM (21:21)
[2023-05-14 23:24] LABS: Glucose Point of Care 121 mg/dl (65-105)
[2023-05-15] VITALS (23 sets, daily range): BP systolic 93–118; BP diastolic 56–78; PULSE 71–111; RESP 20–22; TEMP 35.7–36.7; O2SAT 92–97
[2023-05-15 04:21] LABS: Anion Gap 0 mmol/L (8-16); Blood Urea Nitrogen 16 mg/dL (9-20); Calcium 7.7 mg/dL (8.4-10.2); Carbon Dioxide 31 mmol/L (22-30); Chloride 98 mmol/L (98-107); Estimated CRCL calculation 176 ml/min; Estimated Glomerular Filt Rate > 60; Glucose 91 mg/dL (65-110); Potassium 3.5 mmol/L (3.4-5.0); Sodium 129 mmol/L (137-145)
[2023-05-15 04:22] LABS: Magnesium 1.4 mg/dL (1.6-2.3)
[2023-05-15] MEDS: METOPROLOL TARTRATE 12.5 MG TABLET PO ×3 (06:51→22:38)
[2023-05-15] MEDS: EMPAGLIFLOZIN 10 MG TABLET PO (10:12)
[2023-05-15] MEDS: POTASSIUM CHLORIDE 20 MEQ ER TABLET PO ×2 (10:12→11:54)
[2023-05-15] MEDS: CLOBETASOL PROPIONATE 0.05% OINT 30 GM 1 APPLIC TOPICAL ×2 (10:12→21:06)
[2023-05-15] MEDS: FUROSEMIDE INJ 40 MG/4 ML VIAL 20 MG IV PUSH ×2 (10:14→18:29)
[2023-05-15] MEDS: MAGNESIUM OXIDE 400 MG TABLET PO (10:14)
[2023-05-15] MEDS: SPIRONOLACTONE 12.5 MG TABLET PO (10:14)
[2023-05-15] MEDS: THIAMINE HCL 200 MG/2 ML VIAL 100 MG IV PUSH (10:15)
[2023-05-15] MEDS: MAGNESIUM SULFATE 3GM/D5W100ML 3 GM/100 ML BAG IVPB (10:56)
[2023-05-15] MEDS: FOLIC ACID 1 MG/0.2 ML INJ IV PUSH (10:56)
[2023-05-15 11:02] LABS: Hematocrit 37.4 % (42.0-52.0); Hemoglobin 12.5 g/dL (14.0-18.0); Mean Corpuscular HGB Conc 33.4 g/dl (32-36); Mean Corpuscular Volume 110.7 fl (80-100); Mean Platelet Volume 12.5 fl (7.4-10.4); Platelet Count Result 100 k/mm3 (150-375); Red Blood Count 3.38 M/mm3 (4.6-6.20); Red Cell Distribution Width 16.9 % (11.5-14.5); White Blood Count 6.1 K/mm3 (4.5-10.0)
[2023-05-15 11:55] LABS: Glucose Point of Care 100 mg/dl (65-105)
--- NOTE | 2023-05-15 11:59 | PM.PNCARD ---
Progress Note: A&P Assessment and Plan (1) Atrial fibrillation with rapid ventricular response: Code(s): I48.91 - Unspecified atrial fibrillation Status: Acute Assessment and Plan: New onset of AFib RVR, rate now controlled on po metoprolol. Unclear if the patient is a good candidate for long-term anticoagulation; depends on CHADS2 Vasc score/echo etc.. He does have underlying liver disease with an INR already of 1.8 so would be at bleeding risk as well. --Continue metop to 12.5 mg Q8H since he is missing doses due to low BP --currently anticoagulated with Lovenox. --counseled patient about atrial fibrillation, likely recurrence of symptoms if not treated chronically (2) Congestive heart failure: Qualifiers: Heart failure chronicity: unspecified Heart failure type: unspecified Qualified Code(s): I50.9 - Heart failure, unspecified Code(s): I50.9 - Heart failure, unspecified Status: Acute Assessment and Plan: Acute CHF, improved with heart rate control but not diuresing much. Soft blood pressure limits therapy. Had mildly elevated troponins but no chest pain and no ischemic EKG changes on admission. Doubt ACS, likely a troponin spill due to nonischemic myocardial injury (AFib RVR and CHF) --try to diurese as blood pressure tolerates, furosemide 20 mg IV push b.i.d. holding if SBP < 90 mmHg --consider apnea Link prior to DC --patient counseled about CHF and risk of recurrence/relapses --up to chair, Ph Tx as tolerates --CXR shows mild improvement of pulmonary edema. 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 --will be difficult to use usual medications due to low blood pressure --continue metoprolol 12.5mg q8h --add spironolactone 12.5 mg daily --Continue Jardiance 10 mg a day --Add losartan at a later date; unlikely to tolerate Entresto (4) Alcohol abuse: Code(s): F10.10 - Alcohol abuse, uncomplicated Status: Acute Assessment and Plan: History of alcohol abuse. No DTs as yet. Recommended cessation. (5) Hypokalemia: Code(s): E87.6 - Hypokalemia Status: Acute Assessment and Plan: Hypokalemia and hypomagnesia noted --Cont to supplement (6) Elevated bilirubin: Code(s): R17 - Unspecified jaundice Status: Acute Assessment and Plan: Bilirubin was 7 on adm, mild elevation of LFTs, no abdominal pain. Most likely alcoholic hepatitis. --check for viral hepatitis? --He understand alcohol cessation is necessary Subjective Date/time seen: 05/15/23 11:59 Interval history: Follow-up for AFib RVR (160 -190's on admission), acute CHF, elevated troponins, elevated LFTs with a bilirubin of 6. Started on a Cardizem drip on admission. History of substance abuse, hypertension. Date of service 05/13/2023: Patient reports he is breathing a lot better, no longer feels like he is suffocating. Off BiPAP and now on nasal cannula O2. Does not appear to have diuresed much, I's and O's 960/1180 (eisenberg) yesterday, 2300/600 today. Sometimes BP runs low, 88-90s systolic. Patient surprised that he will not be discharged today as he had hoped. Date of service 05/14/2023: Feeling anxious due to bedrest, requests something for anxiety. Soft blood pressure, systolic 94-115. Has not received much Lasix, did tolerate a dose of 20 mg this morning with a good response. Nitro paste hold due to soft blood pressure. Also sometimes his metoprolol is held due to low blood pressure. On 3 L nasal cannula. I's and O's yesterday: 2800 in, 1200 out. Echo showed ejection fraction of 30-35%. Date of service 05/15/2023: He is feeling better today but still has some anxiety. Blood pressure slightly better today, was able to receive some furosemide this
--- NOTE | 2023-05-15 14:25 | WPDPN ---
Progress Note: A&P Assessment and Plan (1) Elevated troponin: Code(s): R77.8 - Other specified abnormalities of plasma proteins Status: Acute Assessment and Plan: Initial troponin was negative. Second troponin 0.058 and 3rd troponin 0.081. This could be related to the AFib RVR. This could also be related to congestive heart failure. An echo has been ordered. Cardiology has been consulted. 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 will have PT/OT evaluate the patient (2) Pneumonia: Code(s): J18.9 - Pneumonia, unspecified organism Status: Acute Assessment and Plan: The patient was started on azithromycin with Rocephin as per antibiotic stewardship for pneumonia. Sputum and blood cultures are pending. I did not start any nebulizer treatments as patient's heart rate is already elevated. The patient is currently on 4 L per nasal cannula. ABGs have been obtained. The patient was on a BiPAP but was weaned off to 4 L per nasal cannula. May also consider a sleep study when the patient is more stable. (3) Atrial fibrillation with rapid ventricular response: Code(s): I48.91 - Unspecified atrial fibrillation Status: Acute Assessment and Plan: The patient is currently on subcu Lovenox and on a Cardizem drip. (4) Congestive heart failure: Qualifiers: Heart failure chronicity: unspecified Heart failure type: unspecified Qualified Code(s): I50.9 - Heart failure, unspecified Code(s): I50.9 - Heart failure, unspecified Status: Acute Assessment and Plan: An echo has been ordered. The patient is on nitroglycerin. (5) Insomnia: Code(s): G47.00 - Insomnia, unspecified Status: Acute Assessment and Plan: May consider sleep study with the apnea link when the patient is more stable. (6) Hypertension: Code(s): I10 - Essential (primary) hypertension Status: Acute Assessment and Plan: The patient stated that he was diagnosed with hypertension in the past but has been noncompliant with medications. (7) Nicotine abuse: Code(s): Z72.0 - Tobacco use Status: Acute Assessment and Plan: The patient's continues to smoke a pack a cigarettes a day. He was requesting a nicotine patch. However I explained that the nicotine could be is stimulate and I did not feel comfortable giving him a nicotine patch at this time. However when he is more stable may consider giving him a nicotine patch. (8) Alcohol abuse: Code(s): F10.10 - Alcohol abuse, uncomplicated Status: Acute Assessment and Plan: Liver enzymes are elevated. I explained that the patient needs to stop drinking. The patient stated that he is weaning it down and not drinking as much. The patient stated that he has gone days without drinking and has not had any withdrawal symptoms. The patient stated he is last drink was 2 days ago. Continue with CIWA. He has p.r.n. Librium and Ativan. Continue with folic acid and thiamin. (9) Fentanyl use diso
[2023-05-15] MEDS: AZITHROMYCIN 250 MG TABLET 500 MG PO (15:07)
--- NOTE | 2023-05-15 16:24 | PCPTNOTE ---
On 05/15/23, the student, SHOLA Magdaleno, provided care and completed [facility] documentation on this patient. I have reviewed the student's documentation and agree with the findings.
[2023-05-15] MEDS: NICOTINE (*PBKC) 21 MG PATCH 1 PATCH TRANSDERM (21:05)
[2023-05-15] MEDS: DOCUSATE SODIUM 100 MG CAPSULE PO (21:06)
[2023-05-16] VITALS (21 sets, daily range): BP systolic 108–127; BP diastolic 63–90; PULSE 74–115; RESP 16–18; TEMP 36.4–36.7; O2SAT 96–98
[2023-05-16 05:03] LABS: Hematocrit 36.2 % (42.0-52.0); Hemoglobin 12.3 g/dL (14.0-18.0); Mean Platelet Volume 12.3 fl (7.4-10.4); Platelet Count Result 104 k/mm3 (150-375); Red Blood Count 3.32 M/mm3 (4.6-6.20); Red Cell Distribution Width 16.2 % (11.5-14.5); White Blood Count 5.7 K/mm3 (4.5-10.0)
[2023-05-16 05:21] LABS: Anion Gap -3 mmol/L (8-16); Blood Urea Nitrogen 15 mg/dL (9-20); Calcium 7.9 mg/dL (8.4-10.2); Carbon Dioxide 34 mmol/L (22-30); Chloride 99 mmol/L (98-107); Estimated CRCL calculation 153 ml/min; Estimated Glomerular Filt Rate > 60; Glucose 90 mg/dL (65-110); Magnesium 1.7 mg/dL (1.6-2.3); Potassium 3.8 mmol/L (3.4-5.0); Sodium 130 mmol/L (137-145)
[2023-05-16] MEDS: METOPROLOL TARTRATE 12.5 MG TABLET PO ×3 (06:33→21:04)
[2023-05-16] MEDS: POTASSIUM CHLORIDE 20 MEQ ER TABLET PO (09:33)
[2023-05-16] MEDS: FUROSEMIDE INJ 40 MG/4 ML VIAL 20 MG IV PUSH ×2 (09:33→16:34)
[2023-05-16] MEDS: MAGNESIUM OXIDE 400 MG TABLET PO (09:34)
[2023-05-16] MEDS: EMPAGLIFLOZIN 10 MG TABLET PO (09:34)
[2023-05-16] MEDS: SPIRONOLACTONE 12.5 MG TABLET PO (09:34)
[2023-05-16] MEDS: CLOBETASOL PROPIONATE 0.05% OINT 30 GM 1 APPLIC TOPICAL ×2 (09:34→21:04)
[2023-05-16] MEDS: THIAMINE HCL 200 MG/2 ML VIAL 100 MG IV PUSH (09:34)
[2023-05-16] MEDS: ENOXAPARIN 120 MG/0.8 ML SYRINGE 114 MG SUB-Q ×2 (09:35→21:05)
[2023-05-16] MEDS: FOLIC ACID 1 MG/0.2 ML INJ IV PUSH (09:36)
--- NOTE | 2023-05-16 09:48 | PM.PNCARD ---
Progress Note: A&P Assessment and Plan (1) Atrial fibrillation with rapid ventricular response: Code(s): I48.91 - Unspecified atrial fibrillation <JOYA Mccloud - Last Filed: 05/16/23 13:53> Status: Acute <JOYA Mccloud - Last Filed: 05/16/23 13:53> Assessment and Plan: New onset of AFib RVR, rate now controlled on po metoprolol. Unclear if the patient is a good candidate for long-term anticoagulation; depends on CHADS2 Vasc score/echo etc.. He does have underlying liver disease with an INR already of 1.8 so would be at bleeding risk as well. --Will shift metoprolol to Toprol XL 37.5mg daily starting tomorrow a.m. --currently anticoagulated with Lovenox, probably not a good candidate for detention a/c <JOYA Mccloud - Last Filed: 05/16/23 13:53> (2) Congestive heart failure: Qualifiers: Heart failure chronicity: unspecified Heart failure type: unspecified Qualified Code(s): I50.9 - Heart failure, unspecified <JOYA Mccloud - Last Filed: 05/16/23 13:53> Code(s): I50.9 - Heart failure, unspecified <JOYA Mccloud - Last Filed: 05/16/23 13:53> Status: Acute <JOYA Mccloud - Last Filed: 05/16/23 13:53> Assessment and Plan: Acute CHF, improved with heart rate control but not diuresing much. Soft blood pressure limits therapy. Had mildly elevated troponins but no chest pain and no ischemic EKG changes on admission. Doubt ACS, likely a troponin spill due to nonischemic myocardial injury (AFib RVR and CHF) --try to diurese as blood pressure tolerates, furosemide 20 mg IV push b.i.d. holding if SBP < 90 mmHg --consider apnea Link prior to DC --patient counseled about CHF and risk of recurrence/relapses --up to chair, Tx as tolerates --Slow improvement, perhaps shift to p.o. 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 --will be difficult to use usual medications due to low blood pressure --continue metoprolol, as above will shift to Toprol XL --add spironolactone 12.5 mg daily --Continue Jardiance 10 mg a day --Add losartan at a later date; unlikely to tolerate Entresto <JOYA Mccloud - Last Filed: 05/16/23 13:53> (4) Alcohol abuse: Code(s): F10.10 - Alcohol abuse, uncomplicated <JOYA Mccloud - Last Filed: 05/16/23 13:53> Status: Acute <JOYA Mccloud - Last Filed: 05/16/23 13:53> Assessment and Plan: History of alcohol abuse. No DTs as yet. Recommended cessation. <JOYA Mccloud - Last Filed: 05/16/23 13:53> (5) Hypokalemia: Code(s): E87.6 - Hypokalemia <JOYA Mccloud - Last Filed: 05/16/23 13:53> Status: Acute <JOYA Mccloud - Last Filed: 05/16/23 13:53> Assessment and Plan: Hypokalemia and hypomagnesia noted --Cont to supplement <JOYA Mccloud - Last Filed: 05/16/23 13:53> (6) Elevated bilirubin: Code(s): R17 - Unspecified jaundice <JOYA Mccloud - Last Filed: 05/16/23 13:53> Status: Acute <JOYA Mccloud - Last Filed: 05/16/23 13:53> Assessment and Plan: Bilirubin was 7 on adm, mild elevation of LFTs, no abdominal pain. Most likely alcoholic hepatitis. --check for viral hepatitis? --He understand alcohol cessation is necessary <JOYA Mccloud - Last Filed: 05/16/23 13:53> Assessment and Plan: CArdiology Attending: Pt reports working w/ Ph Tx, slightly winded walking to bathroom, weak legs needing assistance when walking
[2023-05-16] MEDS: AMOXICILLIN/CLAVULANATE K 875-125 MG TAB 1 TABLET PO ×2 (10:08→21:04)
[2023-05-16] MEDS: ONDANSETRON INJ 4 MG/2 ML VIAL IV PUSH (12:24)
[2023-05-16] MEDS: AZITHROMYCIN 250 MG TABLET 500 MG PO (14:06)
[2023-05-16] MEDS: DOCUSATE SODIUM 100 MG CAPSULE PO ×2 (14:06→21:04)
--- NOTE | 2023-05-16 15:15 | PC.NURSE ---
This patient, Vincent Rivera, was transferred to [[id number] ] on 05/16/23 at 6505. Personal belongings sent with patient. Report given to [KALYANI Gifford @ [phone] ]. Appropriate documentation sent with patient.
--- NOTE | 2023-05-16 15:23 | PC.NURSE ---
This patient, Vincent Rivera, was received from [facility] on 05/16/23 at 1523. Patient/family oriented to unit policies and routines
--- NOTE | 2023-05-16 16:15 | WPDPN ---
Progress Note: A&P Assessment and Plan (1) Elevated troponin: Code(s): R77.8 - Other specified abnormalities of plasma proteins Status: Acute Assessment and Plan: Initial troponin was negative. Second troponin 0.058 and 3rd troponin 0.081. This could be related to the AFib RVR. This could also be related to congestive heart failure. An echo has been ordered. Cardiology has been consulted. 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 however patient is in the hospital for 5 days he is out of DT risk, will have PT/OT evaluate the patient (2) Pneumonia: Code(s): J18.9 - Pneumonia, unspecified organism Status: Acute Assessment and Plan: The patient was started on azithromycin with Rocephin as per antibiotic stewardship for pneumonia. Sputum and blood cultures are pending. I did not start any nebulizer treatments as patient's heart rate is already elevated. The patient is currently on 4 L per nasal cannula. ABGs have been obtained. The patient was on a BiPAP but was weaned off to 4 L per nasal cannula. May also consider a sleep study when the patient is more stable. (3) Atrial fibrillation with rapid ventricular response: Code(s): I48.91 - Unspecified atrial fibrillation Status: Acute Assessment and Plan: The patient is currently on subcu Lovenox and on a Cardizem drip. (4) Congestive heart failure: Qualifiers: Heart failure chronicity: unspecified Heart failure type: unspecified Qualified Code(s): I50.9 - Heart failure, unspecified Code(s): I50.9 - Heart failure, unspecified Status: Acute Assessment and Plan: An echo has been ordered. The patient is on nitroglycerin. (5) Insomnia: Code(s): G47.00 - Insomnia, unspecified Status: Acute Assessment and Plan: May consider sleep study with the apnea link when the patient is more stable. (6) Hypertension: Code(s): I10 - Essential (primary) hypertension Status: Acute Assessment and Plan: The patient stated that he was diagnosed with hypertension in the past but has been noncompliant with medications. (7) Nicotine abuse: Code(s): Z72.0 - Tobacco use Status: Acute Assessment and Plan: The patient's continues to smoke a pack a cigarettes a day. He was requesting a nicotine patch. However I explained that the nicotine could be is stimulate and I did not feel comfortable giving him a nicotine patch at this time. However when he is more stable may consider giving him a nicotine patch. (8) Alcohol abuse: Code(s): F10.10 - Alcohol abuse, uncomplicated Status: Acute Assessment and Plan: Liver enzymes are elevated. I explained that the patient needs to stop drinking. The patient stated that he is weaning it down and not drinking as much. The patient stated that he has gone days without drinking and has not had any withdrawal symptoms. The patient stated he is last drink was 2 days ago. Continue
[2023-05-16] MEDS: NICOTINE (*PBKC) 21 MG PATCH 1 PATCH TRANSDERM (21:04)
[2023-05-16] MEDS: chlordiazePOXIDE (*CRX) 10 MG CAPSULE PO (23:36)
[2023-05-17] VITALS (15 sets, daily range): BP systolic 98–100; BP diastolic 65–71; PULSE 74–120; RESP 18–20; TEMP 36.1–36.9; O2SAT 91–99
[2023-05-17] MEDS: chlordiazePOXIDE (*CRX) 25 MG CAPSULE PO (04:55)
[2023-05-17] MEDS: METOPROLOL TARTRATE 12.5 MG TABLET PO ×3 (04:55→22:34)
[2023-05-17 05:48] LABS: Hematocrit 38.4 % (42.0-52.0); Hemoglobin 13.1 g/dL (14.0-18.0); Mean Corpuscular HGB Conc 34.1 g/dl (32-36); Mean Corpuscular Hemoglobin 36.9 pg (26-34); Mean Corpuscular Volume 108.2 fl (80-100); Mean Platelet Volume 12.1 fl (7.4-10.4); Platelet Count Result 104 k/mm3 (150-375); Red Blood Count 3.55 M/mm3 (4.6-6.20); Red Cell Distribution Width 15.9 % (11.5-14.5); White Blood Count 6.9 K/mm3 (4.5-10.0)
[2023-05-17 06:07] LABS: Anion Gap 1 mmol/L (8-16); Blood Urea Nitrogen 13 mg/dL (9-20); Calcium 8.2 mg/dL (8.4-10.2); Carbon Dioxide 29 mmol/L (22-30); Chloride 99 mmol/L (98-107); Estimated CRCL calculation 174 ml/min; Estimated Glomerular Filt Rate > 60; Glucose 95 mg/dL (65-110); Magnesium 1.4 mg/dL (1.6-2.3); Potassium 3.9 mmol/L (3.4-5.0); Sodium 129 mmol/L (137-145)
[2023-05-17] MEDS: DOCUSATE SODIUM 100 MG CAPSULE PO ×2 (09:03→20:12)
[2023-05-17] MEDS: AMOXICILLIN/CLAVULANATE K 875-125 MG TAB 1 TABLET PO ×2 (09:03→20:11)
[2023-05-17] MEDS: CLOBETASOL PROPIONATE 0.05% OINT 30 GM 1 APPLIC TOPICAL ×2 (09:03→22:35)
[2023-05-17] MEDS: POTASSIUM CHLORIDE 20 MEQ ER TABLET PO (09:03)
[2023-05-17] MEDS: EMPAGLIFLOZIN 10 MG TABLET PO (09:04)
[2023-05-17] MEDS: ENOXAPARIN 120 MG/0.8 ML SYRINGE 114 MG SUB-Q ×2 (09:04→20:12)
[2023-05-17] MEDS: SPIRONOLACTONE 12.5 MG TABLET PO (09:05)
[2023-05-17] MEDS: FOLIC ACID 1 MG/0.2 ML INJ IV PUSH (09:05)
[2023-05-17] MEDS: THIAMINE HCL 200 MG/2 ML VIAL 100 MG IV PUSH (09:05)
[2023-05-17] MEDS: MAGNESIUM OXIDE 400 MG TABLET PO (09:05)
[2023-05-17] MEDS: FUROSEMIDE INJ 40 MG/4 ML VIAL 20 MG IV PUSH ×2 (09:47→17:02)
[2023-05-17 09:55] LABS: Lactic Acid Reflex 6.5 mmol/L (0.7-2.0)
[2023-05-17] MEDS: MAGNESIUM SULF 2 GM/WATER 50ML 2 GM/50 ML BAG IVPB (11:11)
--- NOTE | 2023-05-17 13:43 | PM.PNCARD ---
Progress Note: A&P Assessment and Plan (1) Atrial fibrillation with rapid ventricular response: Code(s): I48.91 - Unspecified atrial fibrillation Status: Acute Assessment and Plan: New onset of AFib RVR, rate now controlled on po metoprolol. He does have underlying liver disease with an INR already of 1.8 so would be at bleeding risk as well. --Will shift metoprolol to Toprol XL 37.5mg daily starting tomorrow a.m. --currently anticoagulated with Lovenox, probably not a good candidate for intermediate frame tender a/c (2) Congestive heart failure: Qualifiers: Heart failure chronicity: unspecified Heart failure type: unspecified Qualified Code(s): I50.9 - Heart failure, unspecified Code(s): I50.9 - Heart failure, unspecified Status: Acute Assessment and Plan: Acute CHF, improved diuresis over the last 2 days, better BP --Cont furosemide 20 mg IV push b.i.d. holding if SBP < 90 mmHg --Hips, buttocks, abdomen still very edematous. Likely has 20-30# of fluid still on board. --Try switching to Furosemide 40 mg BID tmr and see if pt cont to diurese --Eventually, as OPT, reduce to a maintenance of once daily --Home Monday? 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 --will be difficult to use usual medications due to low blood pressure --continue metoprolol, as above will shift to Toprol XL --Cont spironolactone 12.5 mg daily --Continue Jardiance 10 mg a day --Add losartan at a later date; unlikely to tolerate Entresto (4) Alcohol abuse: Code(s): F10.10 - Alcohol abuse, uncomplicated Status: Acute Assessment and Plan: History of alcohol abuse. No DTs as yet. Recommended cessation. (5) Hypokalemia: Code(s): E87.6 - Hypokalemia Status: Acute Assessment and Plan: Hypokalemia corrected, and hypomagnesia noted --Cont to supplement magnesium po and IV (6) Elevated bilirubin: Code(s): R17 - Unspecified jaundice Status: Acute Assessment and Plan: Bilirubin was 7 on adm, mild elevation of LFTs, no abdominal pain. Most likely alcoholic hepatitis. --check for viral hepatitis? --He understand alcohol cessation is necessary Plan CArdiology Attending: Pt reports working w/ Ph Tx, slightly winded walking to bathroom, weak legs needing assistance when walking, making urine. No dizziness. Some constipation and abdom pain. Exam: Irreg RR, rales right base, abd soft nontender, still w/ mild LE and thigh edema, alert and pleasant CXR personally reviewed, improved but moderate CHF Tele: a fib rate 90's at rest, 120 w/ activity Impr: Acute systolic CHF: Improving, making urine, on furosemide 20 mg IV push b.i.d.. Alcoholic cardiomyopathy: BP was slow and soft initially but now tolerating some CHF medications. New onset AFib, rate controlled, currently on Lovenox but likely not a good long-term anticoagulation candidate Alcohol abuse with probable alcoholic hepatitis Plan: Continue furosemide, metoprolol (changing to metoprolol XL), spironolactone, IV furosemide, Jardiance Perhaps start losartan tomorrow if blood pressure stable I spent a substantive time, 25 minutes, in the care of this patient, in collaboration with JAZMIN Jackson. Crystal Diane MD Subjective Date/time seen: 05/17/23 13:43 Interval history: Follow-up for AFib RVR (160 -190's on admission), acute CHF, elevated troponins, elevated LFTs with a bilirubin of 6. Started on a Cardizem drip on admission. Found to have a cardiomyopathy, EF 30-35%, prob alcoholic CM. History of substance abuse, hypertension. 05/13/2023: Patient reports he is breathing a lot better, no longer feels like he is suffocating. Off BiPAP and now on nasal cannula O2. Does not appear to have diuresed
--- NOTE | 2023-05-17 13:58 | PCPTNOTE ---
Attempted to see patient for PT, however patient declined due to wanting to rest at this time. Patient asked if PT can come back later.
--- NOTE | 2023-05-17 17:41 | WPDPN ---
Progress Note: A&P Assessment and Plan (1) Elevated troponin: Code(s): R77.8 - Other specified abnormalities of plasma proteins Status: Acute Assessment and Plan: Initial troponin was negative. Second troponin 0.058 and 3rd troponin 0.081. This could be related to the AFib RVR. This could also be related to congestive heart failure. An echo has been ordered. Cardiology has been consulted. 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 and acute on chronic systolic congestive heart failure, also patient has A Fib and unable to take BB and lasix due to soft BP, however today patient is feeling better and his BP is better, today trim setter switch metoprolol to toprol xl 37.5 qdail as patient cardiomyopathy EF of 35%, patient also has elevated tropes most likely demand ischemia unlikely acute coronary syndrome, patient stats he is feeling little better compare to when he arrived and not as short of breath, and his edema is improving, patient stats he drinks almost every day, being monitored with CIWA protocol while in the hospital. however patient is in the hospital for 5 days he is out of DT risk, will have PT/OT evaluate the patient (2) Pneumonia: Code(s): J18.9 - Pneumonia, unspecified organism Status: Acute Assessment and Plan: The patient was started on azithromycin with Rocephin as per antibiotic stewardship for pneumonia. Sputum and blood cultures are pending. I did not start any nebulizer treatments as patient's heart rate is already elevated. The patient is currently on 4 L per nasal cannula. ABGs have been obtained. The patient was on a BiPAP but was weaned off to 4 L per nasal cannula. May also consider a sleep study when the patient is more stable. (3) Atrial fibrillation with rapid ventricular response: Code(s): I48.91 - Unspecified atrial fibrillation Status: Acute Assessment and Plan: The patient is currently on subcu Lovenox and on a Cardizem drip. (4) Congestive heart failure: Qualifiers: Heart failure chronicity: unspecified Heart failure type: unspecified Qualified Code(s): I50.9 - Heart failure, unspecified Code(s): I50.9 - Heart failure, unspecified Status: Acute Assessment and Plan: An echo has been ordered. The patient is on nitroglycerin. (5) Insomnia: Code(s): G47.00 - Insomnia, unspecified Status: Acute Assessment and Plan: May consider sleep study with the apnea link when the patient is more stable. (6) Hypertension: Code(s): I10 - Essential (primary) hypertension Status: Acute Assessment and Plan: The patient stated that he was diagnosed with hypertension in the past but has been noncompliant with medications. (7) Nicotine abuse: Code(s): Z72.0 - Tobacco use Status: Acute Assessment and Plan: The patient's continues to smoke a pack a cigarettes a day. He was requesting a nicotine patch. However I explained that the nicotine could be is stimulate and I did not feel comfortable giving him a nicotine patch at this time. However when he is more stable may consider giving him a nicotine patch. (8) Alcohol abuse: Code(s): F10.10 - Alcohol abuse, uncomplicated Status: Acute Assessment and Plan: Liver enzymes are elevated. I explained that the patient needs to stop drinking. The patient stated that he is weaning it down and not drinking as much. The patient stated that he has gone days without drinking and has n
[2023-05-17] MEDS: NICOTINE (*PBKC) 21 MG PATCH 1 PATCH TRANSDERM (20:12)
--- NOTE | 2023-05-17 22:32 | PCRCNOTE ---
Patient refused use of bipap tonight, stating it didn't allow him to get much sleep last night. RT encouraged, pt denied.
[2023-05-18] VITALS (13 sets, daily range): BP systolic 100–144; BP diastolic 62–78; PULSE 53–130; RESP 18; TEMP 35.7–37.1; O2SAT 92–95
[2023-05-18 01:33] LABS: Legionella pneumophila Ag Ur Not Detected (Not Detected)
[2023-05-18 05:44] LABS: Hematocrit 39.4 % (42.0-52.0); Hemoglobin 13.3 g/dL (14.0-18.0); Immature Platelet Fraction Pct 8.2 % (0.9-11.2); Mean Corpuscular HGB Conc 33.8 g/dl (32-36); Mean Corpuscular Hemoglobin 37.4 pg (26-34); Mean Corpuscular Volume 110.7 fl (80-100); Mean Platelet Volume 11.8 fl (7.4-10.4); Platelet Count Result 117 k/mm3 (150-375); Red Blood Count 3.56 M/mm3 (4.6-6.20); Red Cell Distribution Width 15.8 % (11.5-14.5); White Blood Count 6.1 K/mm3 (4.5-10.0)
[2023-05-18 05:55] LABS: Anion Gap -2 mmol/L (8-16); Blood Urea Nitrogen 11 mg/dL (9-20); Calcium 8.3 mg/dL (8.4-10.2); Carbon Dioxide 34 mmol/L (22-30); Chloride 99 mmol/L (98-107); Estimated CRCL calculation 150 ml/min; Estimated Glomerular Filt Rate > 60; Glucose 87 mg/dL (65-110); Magnesium 1.6 mg/dL (1.6-2.3); Potassium 4.2 mmol/L (3.4-5.0); Sodium 131 mmol/L (137-145)
[2023-05-18] MEDS: METOPROLOL SUCCINATE EXT REL 12.5 MG, METOPROLOL SUCCINATE EXT REL 25 MG 37.5 MG PO (07:22)
[2023-05-18] MEDS: POTASSIUM CHLORIDE 20 MEQ ER TABLET PO (08:34)
[2023-05-18] MEDS: ENOXAPARIN 120 MG/0.8 ML SYRINGE 114 MG SUB-Q ×2 (08:34→20:26)
[2023-05-18] MEDS: DOCUSATE SODIUM 100 MG CAPSULE PO ×2 (08:35→20:26)
[2023-05-18] MEDS: CLOBETASOL PROPIONATE 0.05% OINT 30 GM 1 APPLIC TOPICAL ×2 (08:35→20:26)
[2023-05-18] MEDS: MAGNESIUM OXIDE 400 MG TABLET PO (08:36)
[2023-05-18] MEDS: AMOXICILLIN/CLAVULANATE K 875-125 MG TAB 1 TABLET PO ×2 (08:36→20:26)
[2023-05-18] MEDS: SPIRONOLACTONE 12.5 MG TABLET PO (08:36)
[2023-05-18] MEDS: EMPAGLIFLOZIN 10 MG TABLET PO (08:36)
[2023-05-18] MEDS: FUROSEMIDE 40 MG TABLET PO ×2 (08:36→17:15)
[2023-05-18] MEDS: THIAMINE HCL 200 MG/2 ML VIAL 100 MG IV PUSH (08:37)
[2023-05-18] MEDS: FOLIC ACID 1 MG/0.2 ML INJ IV PUSH (09:53)
[2023-05-18] MEDS: LIDOCAINE 5% PATCH 3 PATCH TRANSDERM (10:38)
--- NOTE | 2023-05-18 11:48 | PM.PNCARD ---
Progress Note: A&P Assessment and Plan (1) Atrial fibrillation with rapid ventricular response: Code(s): I48.91 - Unspecified atrial fibrillation Status: Acute Assessment and Plan: New onset of AFib RVR, rate now controlled on po metoprolol. He does have underlying liver disease with an INR already of 1.8 so would be at bleeding risk as well. --Increase metoprolol to 50mg daily for better rate control --currently anticoagulated with Lovenox, probably not a good candidate for chcf a/c (2) Congestive heart failure: Qualifiers: Heart failure chronicity: unspecified Heart failure type: unspecified Qualified Code(s): I50.9 - Heart failure, unspecified Code(s): I50.9 - Heart failure, unspecified Status: Acute Assessment and Plan: Acute CHF, improved diuresis over the last 2 days, better BP --Hips, buttocks, abdomen still edematous,but improving --Diuresing on p.o. furosemide --Eventually, as OPT, reduce to a maintenance of once daily --Home tomorrow? 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 --will be difficult to use usual medications due to low blood pressure --continue Toprol XL --Cont spironolactone 12.5 mg daily --Continue Jardiance 10 mg a day --Add losartan at a later date; unlikely to tolerate Entresto (4) Alcohol abuse: Code(s): F10.10 - Alcohol abuse, uncomplicated Status: Acute Assessment and Plan: History of alcohol abuse. (5) Hypokalemia: Code(s): E87.6 - Hypokalemia Status: Acute Assessment and Plan: Hypokalemia corrected, and hypomagnesia noted --Cont to supplement --BMP tomorrow (6) Elevated bilirubin: Code(s): R17 - Unspecified jaundice Status: Acute Assessment and Plan: Bilirubin was 7 on adm, mild elevation of LFTs, no abdominal pain. Most likely alcoholic hepatitis. --check for viral hepatitis? --He understand alcohol cessation is necessary Subjective Date/time seen: 05/18/23 11:48 Interval history: Follow-up for AFib RVR (160 -190's on admission), acute CHF, elevated troponins, elevated LFTs with a bilirubin of 6. Started on a Cardizem drip on admission. Found to have a cardiomyopathy, EF 30-35%, prob alcoholic CM. History of substance abuse, hypertension. 05/13/2023: Patient reports he is breathing a lot better, no longer feels like he is suffocating. Off BiPAP and now on nasal cannula O2. Does not appear to have diuresed much, I's and O's 960/1180 (eisenberg) yesterday, 2300/600 today. Sometimes BP runs low, 88-90s systolic. 05/14/2023: Has not received much Lasix, did tolerate a dose of 20 mg this morning with a good response. Nitro paste hold due to soft blood pressure. Also sometimes his metoprolol is held due to low blood pressure. Echo showed ejection fraction of 30-35%. Reduce metoprolol due to low blood pressure. Added spironolactone, Jardiance. 05/15/2023: BP a little better, continue IV diuretics Date of service 05/16/2023: Changed metoprolol to XL, continue furosemide 20 mg IV push b.i.d., increase activity Date of service 05/17/2023: Feeling better, participated w/ PH Tx w/o SOB or dizziness. BP generally 100-120s systolic. BiPAP at night, 1 L nasal cannula during day. I's and O's yesterday were: 1800 in, 5300 out, diuresing well today as well. Magnesium low. Review of Systems Review of Systems: No chest pain, breathing is better, ongoing swelling, anxious, no abdom pain or bleeding All systems reviewed & are unremarkable except as noted in HPI and below Neurologic: Denies confusion Psychiatric: Psychiatric: Denies confusion Exam Narrative: Ill-appearing middle aged man lying supine in bed. Const: General: coope
--- NOTE | 2023-05-18 12:58 | WPDPN ---
Progress Note: A&P Assessment and Plan (1) Elevated troponin: Code(s): R77.8 - Other specified abnormalities of plasma proteins Status: Acute Assessment and Plan: Initial troponin was negative. Second troponin 0.058 and 3rd troponin 0.081. This could be related to the AFib RVR. This could also be related to congestive heart failure. An echo has been ordered. Cardiology has been consulted. 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 and acute on chronic systolic congestive heart failure, also patient has A Fib and unable to take BB and lasix due to soft BP, however today patient is feeling better and his BP is better, on 05/17 toe stripper switched metoprolol to toprol xl 37.5 qdail as patient cardiomyopathy EF of 35%, Patient will need lifevest upon discharge, patient also has elevated tropes most likely demand ischemia unlikely acute coronary syndrome, patient stats he is feeling little better compare to when he arrived and not as short of breath, and his edema is improving, today patient was able to ambulate in the hallways, he does develop tachycardia with exertion, patient stats he drinks almost every day, being monitored with CIWA protocol while in the hospital. however patient is in the hospital for 5 days he is out of DT risk, will have PT/OT evaluate the patient (2) Pneumonia: Code(s): J18.9 - Pneumonia, unspecified organism Status: Acute Assessment and Plan: The patient was started on azithromycin with Rocephin as per antibiotic stewardship for pneumonia. Sputum and blood cultures are pending. I did not start any nebulizer treatments as patient's heart rate is already elevated. The patient is currently on 4 L per nasal cannula. ABGs have been obtained. The patient was on a BiPAP but was weaned off to 4 L per nasal cannula. May also consider a sleep study when the patient is more stable. (3) Atrial fibrillation with rapid ventricular response: Code(s): I48.91 - Unspecified atrial fibrillation Status: Acute Assessment and Plan: The patient is currently on subcu Lovenox and on a Cardizem drip. (4) Congestive heart failure: Qualifiers: Heart failure chronicity: unspecified Heart failure type: unspecified Qualified Code(s): I50.9 - Heart failure, unspecified Code(s): I50.9 - Heart failure, unspecified Status: Acute Assessment and Plan: An echo has been ordered. The patient is on nitroglycerin. (5) Insomnia: Code(s): G47.00 - Insomnia, unspecified Status: Acute Assessment and Plan: May consider sleep study with the apnea link when the patient is more stable. (6) Hypertension: Code(s): I10 - Essential (primary) hypertension Status: Acute Assessment and Plan: The patient stated that he was diagnosed with hypertension in the past but has been noncompliant with medications. (7) Nicotine abuse: Code(s): Z72.0 - Tobacco use Status: Acute Assessment and Plan: The patient's continues to smoke a pack a cigarettes a day. He was requesting a nicotine patch. However I explained that the nicotine could be is stimulate and I did not feel comfortable giving him a nicotine patch at this time. However when he is more stable may consider giving him a nicotine patch. (8) Alcohol abuse: Code(s): F10.10 - Alcohol abuse, uncomplicated Status: Acute Assessment and Plan: Liver enzymes are elevated. I explained that the patient needs to stop drink
[2023-05-18] MEDS: NICOTINE (*PBKC) 21 MG PATCH 1 PATCH TRANSDERM (20:26)
[2023-05-18] MEDS: METOPROLOL TARTRATE INJ 5 MG/5 ML VIAL IV PUSH (23:54)
[2023-05-19] VITALS (8 sets, daily range): BP systolic 106–116; BP diastolic 62–76; PULSE 87–118; RESP 18–20; TEMP 36.3–36.8; O2SAT 90–91
[2023-05-19] MEDS: traZODone HCL 50 MG TABLET PO (00:38)
[2023-05-19 05:35] LABS: Hematocrit 37.7 % (42.0-52.0); Hemoglobin 12.9 g/dL (14.0-18.0); Immature Platelet Fraction Pct 7.1 % (0.9-11.2); Mean Corpuscular HGB Conc 34.2 g/dl (32-36); Mean Corpuscular Hemoglobin 37.6 pg (26-34); Mean Corpuscular Volume 109.9 fl (80-100); Mean Platelet Volume 11.5 fl (7.4-10.4); Platelet Count Result 115 k/mm3 (150-375); Red Blood Count 3.43 M/mm3 (4.6-6.20); Red Cell Distribution Width 15.7 % (11.5-14.5); White Blood Count 5.7 K/mm3 (4.5-10.0)
[2023-05-19 05:59] LABS: Anion Gap 0 mmol/L (8-16); Blood Urea Nitrogen 11 mg/dL (9-20); Calcium 8.4 mg/dL (8.4-10.2); Carbon Dioxide 33 mmol/L (22-30); Chloride 100 mmol/L (98-107); Estimated CRCL calculation 170 ml/min; Estimated Glomerular Filt Rate > 60; Glucose 93 mg/dL (65-110); Magnesium 1.4 mg/dL (1.6-2.3); Potassium 4.1 mmol/L (3.4-5.0); Sodium 133 mmol/L (137-145)
[2023-05-19] MEDS: ENOXAPARIN 120 MG/0.8 ML SYRINGE 114 MG SUB-Q (08:51)
[2023-05-19] MEDS: EMPAGLIFLOZIN 10 MG TABLET PO (08:51)
[2023-05-19] MEDS: DOCUSATE SODIUM 100 MG CAPSULE PO (08:51)
[2023-05-19] MEDS: POTASSIUM CHLORIDE 20 MEQ ER TABLET PO (08:51)
[2023-05-19] MEDS: METOPROLOL SUCCINATE EXT REL 50 MG TABCR PO (08:52)
[2023-05-19] MEDS: FUROSEMIDE 40 MG TABLET PO (08:52)
[2023-05-19] MEDS: MAGNESIUM OXIDE 400 MG TABLET PO (08:52)
[2023-05-19] MEDS: THIAMINE HCL 200 MG/2 ML VIAL 100 MG IV PUSH (08:53)
[2023-05-19] MEDS: FOLIC ACID 1 MG/0.2 ML INJ IV PUSH (08:56)
--- NOTE | 2023-05-19 10:19 | PM.PNCARD ---
Progress Note: A&P Assessment and Plan (1) Atrial fibrillation with rapid ventricular response: Code(s): I48.91 - Unspecified atrial fibrillation Status: Acute Assessment and Plan: New onset of AFib RVR, rate now controlled on p.o. metoprolol. He does have underlying liver disease with an INR already of 1.8 so would be at bleeding risk as well. --Continue Toprol XL, increase to 75 at discharge since his blood pressure tolerated 50mg today. He is generally rate controlled in the low 100's but has tachycardia with activity. Asymptomatic. --currently anticoagulated with Lovenox, not a candidate for skilled nursing a/c due to excessive alcohol use, liver disease, and ongoing fentanyl use (2) Congestive heart failure: Qualifiers: Heart failure chronicity: unspecified Heart failure type: unspecified Qualified Code(s): I50.9 - Heart failure, unspecified Code(s): I50.9 - Heart failure, unspecified Status: Acute Assessment and Plan: Acute CHF, improved diuresis over the last 3 days, better BP --Hips, buttocks, abdomen still edematous, but improving --Diuresing on p.o. furosemide. Continue furosemide 40mg b.i.d. --Will need BMP one week after discharge --Eventually, as OPT, reduce to a maintenance of once daily --OK for discharge today from a cardiac standpoint if he can be weaned from oxygen (3) Cardiomyopathy: Code(s): I42.9 - Cardiomyopathy, unspecified Status: Acute Assessment and Plan: LV enlargement and EF 30-35%, partly due perhaps to AFib RVR but also in a large part likely an alcoholic cardiomyopathy. --will be difficult to use usual medications due to low blood pressure --continue Toprol XL --Cont spironolactone 12.5 mg daily --Continue Jardiance 10 mg a day --Add losartan at a later date; unlikely to tolerate Entresto (4) Alcohol abuse: Code(s): F10.10 - Alcohol abuse, uncomplicated Status: Acute Assessment and Plan: History of alcohol abuse. (5) Hypokalemia: Code(s): E87.6 - Hypokalemia Status: Acute Assessment and Plan: Hypokalemia corrected, and hypomagnesia noted --Cont to supplement --BMP in one week as outpatient (6) Elevated bilirubin: Code(s): R17 - Unspecified jaundice Status: Acute Assessment and Plan: Bilirubin was 7 on adm, mild elevation of LFTs, no abdominal pain. Most likely alcoholic hepatitis. --He understand alcohol cessation is necessary Subjective Date/time seen: 05/19/23 10:19 Interval history: Follow-up for AFib RVR (160 -190's on admission), acute CHF, elevated troponins, elevated LFTs with a bilirubin of 6. Started on a Cardizem drip on admission. Found to have a cardiomyopathy, EF 30-35%, prob alcoholic CM. History of substance abuse, hypertension. 05/13/2023: Patient reports he is breathing a lot better, no longer feels like he is suffocating. Off BiPAP and now on nasal cannula O2. Does not appear to have diuresed much, I's and O's 960/1180 (eisenberg) yesterday, 2300/600 today. Sometimes BP runs low, 88-90s systolic. 05/14/2023: Has not received much Lasix, did tolerate a dose of 20 mg this morning with a good response. Nitro paste hold due to soft blood pressure. Also sometimes his metoprolol is held due to low blood pressure. Echo showed ejection fraction of 30-35%. Reduce metoprolol due to low blood pressure. Added spironolactone, Jardiance. 05/15/2023: BP a little better, continue IV diuretics Date of service 05/16/2023: Changed metoprolol to XL, continue furosemide 20 mg IV push b.i.d., increase activity Date of service 05/17/2023: Feeling better, participated w/ PH Tx w/o SOB or dizziness. BP generally 100-120s systolic. BiPAP at night, 1 L nasal cannula during day. I's and O's yesterday were: 1800 in, 5300 out, diuresing well today as well. Magnesium low. Date of service 05/19/2023: Continues to improve. Has been working with PT.
[2023-05-19] MEDS: CLOBETASOL PROPIONATE 0.05% OINT 30 GM 1 APPLIC TOPICAL (12:29)
[2023-05-19] MEDS: SPIRONOLACTONE 12.5 MG TABLET PO (13:15)
--- NOTE | 2023-05-19 16:29 | PM.DS ---
DS: Admitting Diagnosis Discharge Date 05/19/2023 Admitting Diagnosis Short of breath DS: Discharge Diagnosis Discharge Diagnosis (1) Elevated troponin: Code(s): R77.8 - Other specified abnormalities of plasma proteins Status: Acute Assessment and Plan: Initial troponin was negative. Second troponin 0.058 and 3rd troponin 0.081. This could be related to the AFib RVR. This could also be related to congestive heart failure. An echo has been ordered. Cardiology has been consulted. 05/18/2023 interval history: patient with history of alcohol abuse, illicit drug use and morbid obesity presented with shortness of breath suspect patient has acute on chronic congest[place] [address] patient is being diuresed with lasix 40mg IV BID, patient blood pressure is soft held lasix last evening this morning reduced it to 20mg IV for 60mg IV, patient echo showed severe hypokinesis with reduced EF of 35-40%, most likely patient has alcoholic cardiomyopathy and acute on chronic systolic congestive heart failure, also patient has A Fib and unable to take BB and lasix due to soft BP, however today patient is feeling better and his BP is better, on 05/17 health education teacher switched metoprolol to toprol xl 37.5 qdail as patient cardiomyopathy EF of 35%, Patient will need lifevest upon discharge, patient also has elevated tropes most likely demand ischemia unlikely acute coronary syndrome, patient stats he is feeling little better compare to when he arrived and not as short of breath, and his edema is improving, today patient was able to ambulate in the hallways, he does develop tachycardia with exertion, patient stats he drinks almost every day, being monitored with CIWA protocol while in the hospital. however patient is in the hospital for 5 days he is out of DT risk, will have PT/OT evaluate the patient (2) Pneumonia: Code(s): J18.9 - Pneumonia, unspecified organism Status: Acute Assessment and Plan: The patient was started on azithromycin with Rocephin as per antibiotic stewardship for pneumonia. Sputum and blood cultures are pending. I did not start any nebulizer treatments as patient's heart rate is already elevated. The patient is currently on 4 L per nasal cannula. ABGs have been obtained. The patient was on a BiPAP but was weaned off to 4 L per nasal cannula. May also consider a sleep study when the patient is more stable. (3) Atrial fibrillation with rapid ventricular response: Code(s): I48.91 - Unspecified atrial fibrillation Status: Acute Assessment and Plan: The patient is currently on subcu Lovenox and on a Cardizem drip. (4) Congestive heart failure: Qualifiers: Heart failure chronicity: unspecified Heart failure type: unspecified Qualified Code(s): I50.9 - Heart failure, unspecified Code(s): I50.9 - Heart failure, unspecified Status: Acute Assessment and Plan: An echo has been ordered. The patient is on nitroglycerin. (5) Insomnia: Code(s): G47.00 - Insomnia, unspecified Status: Acute Assessment and Plan: May consider sleep study with the apnea link when the patient is more stable. (6) Hypertension: Code(s): I10 - Essential (primary) hypertension Status: Acute Assessment and Plan: The patient stated that he was diagnosed with hypertension in the past but has been noncompliant with medications. (7) Nicotine abuse: Code(s): Z72.0 - Tobacco use Status: Acute Assessment and Plan: The patient's continues to smoke a pack a cigarettes a day. He was requesting a nicotine patch. However I explained that the nicotine could be is stimulate and I did not feel comfortable giving him a nicotine patch at this time. However when he is more stable may consider giving him a nicotine patch. (8) Alcohol abuse: Code(s): F10.10 - Alcohol abuse, uncomplicated Status: Acute A
== END 2023-05-19 18:10 | disposition home or self-care (01) | DRG 194 ==
LOC: ANHED 08:30 → ANHIMU 09:11 → ANH2MED 05-16 15:20
PROVIDERS: Emergency Medicine; Nurse Practitioner; Admitting Provider Family Medicine; Emergency Provider Emergency Medicine; Visit Provider Family Medicine
DX: I11.0 Hypertensive heart disease with heart failure (principal); J18.9 Pneumonia, unspecified organism; I24.8 Other forms of acute ischemic heart disease; I42.6 Alcoholic cardiomyopathy; I48.91 Unspecified atrial fibrillation; I50.23 Acute on chronic systolic (congestive) heart failure; E87.6 Hypokalemia; F10.10 Alcohol abuse, uncomplicated; F32.A Depression, unspecified; F41.9 Anxiety disorder, unspecified; F17.210 Nicotine dependence, cigarettes, uncomplicated; Z20.822 Contact with and (suspected) exposure to COVID-19
CPT/HCPCS: 36415; 36600; 71045; 76870; 80048; 80053; 80307; 81001; 82805; 82948; 83605; 83735; 83880; 84145; 84443; 84484; 85025; 85027; 85055; 85610; 85730; 87040; 87070; 87081; 87205; 87449; 87637; 93005; 93970; 93976; 94002; 94003; 96365; 96366; 96375; 97110; 97161; 97165; 97530; 97535; 99285; A9270; C8929; J0456; J0696; J1650; J1940; J2060; J2405; J3411; J3475; Q9957

== ENCOUNTER 2023-07-31 14:03 | Inpatient (IN) | payer OTHER, SELFPAY ==
[2023-07-31] VITALS (48 sets, daily range): BP systolic 46–149; BP diastolic 23–108; PULSE 67–142; RESP 14–29; TEMP 35.7–38.2; O2SAT 91–100; BMI 36.2
--- NOTE | ~2023-07-31 | US_ITS ---
EXAMINATION: US venous doppler [facility] DATE: 08/01/2023 15:29 INDICATION: bilateral lower extremity edema . TECHNIQUE: Grayscale images without and with compression and Doppler images of the bilateral lower ex tremity veins were obtained. COMPARISON: FINDINGS: The right common femoral vein, profunda (deep) femoral vein, femoral vein, popliteal vein, gastrocnem ius vein, and greater saphenous vein are patent. Partially compressible left superficial femoral vein with preserved color Doppler flow. The left comm on femoral vein, profunda (deep) femoral vein, popliteal vein, gastrocnemius vein, and greater saphe nous vein are patent. IMPRESSION: Peroneal and posterior tibial veins were not visualized in either leg. Partially compressible left superficial femoral vein, may reflect chronic DVT changes. No acute DVT present in the right lower extremity. Reviewed, dictated and finalized at location K. IMPRESSION: Peroneal and posterior tibial veins were not visualized in either leg. Partially compressible left superficial femoral vein, may reflect chronic DVT joana ivey. No acute DVT present in the right lower extremity.
--- NOTE | ~2023-07-31 | US_ITS ---
EXAMINATION: US paracentesis abd w/image DATE: 08/01/2023 15:34 INDICATION: Ascites. TECHNIQUE: The procedure and its risks and benefits were discussed with the patient. Potential risks discussed included bleeding and infection. The skin was prepped and draped in sterile fashion. 1% lid ocaine was used for local anesthesia. Under ultrasound guidance, a 5 Fr catheter with trochar was adv anced into the ascites in the left lower quadrant. Fluid was aspirated into vacuum bottles. The cheng ter was removed, and a dressing was applied. There were no immediate complications. FINDINGS: Ultrasound images demonstrate ascites and the catheter within the fluid. IMPRESSION: 1. Successful ultrasound-guided paracentesis yielding 3750 mL of cloudy yoanna-colored fluid. Reviewed, dictated and finalized at location A. IMPRESSION: 1. Successful ultrasound-guided paracentesis yielding 3750 mL of cloudy yoanna- colored fluid.
--- NOTE | ~2023-07-31 | XR_ITS ---
EXAMINATION: XR chest 1V portable Exam Date/Time: 07/31/2023 14:45 CDT HISTORY: irreg heartbeat, SOB Comparison: 05/15/2023. RESULT: Lines, tubes, and devices: None. Lungs and pleura: Interval improved diffuse reticular opacities. Streaky bibasilar linear opacities l ikely worsening atelectasis/scar. Cardiomediastinal silhouette: Stable. Other: No acute osseous or upper abdominal finding. IMPRESSION: No acute cardiopulmonary process. Reviewed, dictated and finalized at location K.
--- NOTE | 2023-07-31 14:05 | ECG_ITS ---
Measurements Intervals Gleason Rate: 168 P: MT: 0 QRS: -10 QRSD: 95 T: 100 QT: 247 QTc: 413 Interpretive Statements ATRIAL FIBRILLATION WITH RAPID VENTRICULAR RESPONSE LEFT VENTRICULAR HYPERTROPHY WITH ST-T CHANGE NONSPECIFIC ST & T-WAVE ABNORMALITY- ANTEROLATERAL LEADS BASELINE ARTIFACT- V2 ABNORMAL ECG COMPARED TO ECG 05/12/2023 06:39:10 NO SIGNIFICANT CHANGES Electronically Signed On 07-31-2023 14:56:51 CDT by Addy Roberts D.O.
[2023-07-31 14:26] LABS: Basophils Absolute Auto 0.1 K/mm3 (0.0-0.1); Eosinophils Absolute Auto 0.1 K/mm3 (0-0.3); Eosinophils Percent Auto 0.4 % (0-4.4); Hematocrit 36.5 % (42.0-52.0); Hemoglobin 12.4 g/dL (14.0-18.0); Immature Granulocyte Absolute 0.12 K/mm3 (0.00-0.031); Lymphocytes Absolute Auto 1.52 K/mm3 (0.9-3.2); Lymphocytes Percent Auto 12.2 % (18.3-44.2); Mean Corpuscular Hemoglobin 38.3 pg (26-34); Mean Corpuscular Volume 112.7 fl (80-100); Mean Platelet Volume 11.6 fl (7.4-10.4); Monocytes Absolute Auto 1.1 K/mm3 (0.1-0.6); Monocytes Percent Auto 8.7 % (2.6-8.5); Neutrophils Absolute Auto 9.6 K/mm3 (1.3-6.7); Neutrophils Percent Auto 76.7 % (45.5-73.1); Platelet Count Result 147 k/mm3 (150-375); Red Blood Count 3.24 M/mm3 (4.6-6.20); Red Cell Distribution Width 16.4 % (11.5-14.5); White Blood Count 12.5 K/mm3 (4.5-10.0)
[2023-07-31 14:37] LABS: Alanine Aminotransferase 37 U/L (6-50); Albumin Level 3.2 g/dL (3.5-5.1); Alkaline Phosphatase 152 U/L (38-126); Anion Gap 8 mmol/L (8-16); Aspartate Amino Transferase 133 U/L (17-59); Bilirubin,Total 8.1 mg/dL (0.2-1.3); Blood Urea Nitrogen 10 mg/dL (9-20); Calcium 8.2 mg/dL (8.4-10.2); Carbon Dioxide 20 mmol/L (22-30); Chloride 108 mmol/L (98-107); Estimated CRCL calculation 147 ml/min; Estimated Glomerular Filt Rate > 60; Glucose 121 mg/dL (65-110); Lipase 316 U/L (23-300); Potassium 4.7 mmol/L (3.4-5.0); Sodium 136 mmol/L (137-145)
[2023-07-31] MEDS: dilTIAZem HCl INJ 25 MG/5 ML VIAL 10 MG IV PUSH (14:37)
[2023-07-31] MEDS: SODIUM CHLORIDE 0.9% IV 1,000 ML 999 ML IV CONT (14:37)
[2023-07-31] MEDS: THIAMINE HCL 200 MG/2 ML VIAL 100 MG IV PUSH (14:38)
[2023-07-31] MEDS: ASPIRIN 81 MG CHEWABLE TABLET 324 MG PO (14:41)
--- NOTE | 2023-07-31 14:44 | ED.ARRPALP ---
HPI - Arrhythmia/Palpitations General Chief Complaint: Arrhythmia/Palpitations Stated Complaint: possible afib Time Seen by Provider: 07/31/23 14:22 History of Present Illness HPI narrative: 42-year-old male history of alcohol abuse presented the ED for evaluation of rapid heart rate. Patient reports he does have a history of A-fib. Patient reports he had a recent hospitalization [facility] for rapid heart rate and for elevated blood pressure. Patient was having outpatient follow-up for that recent hospitalization when he was found to have a heart rate in the 160s and he was referred to the emergency department for further evaluation. Patient states he does drink alcohol daily did drink alcohol this morning. Patient does have history of abdominal ascites and has had follow-up with GI previously and does describe prior paracentesis. Patient is prescribed metoprolol and furosemide Related Data Allergies Allergy/AdvReac Type Severity Reaction Status Date / Time No Known Allergies Allergy Verified 05/12/23 06:58 Review of Systems Review of Systems: All systems reviewed & are unremarkable except as noted in HPI and below PMFSH Past Medical History Medical History (Updated 07/31/23 @ 19:39 by Dino Chi MD) Alcohol abuse Cardiomyopathy Depression with anxiety Elevated troponin Fentanyl use disorder, mild, abuse Hypertension Insomnia Left knee injury Nicotine abuse Pneumonia Psoriasis Surgical History Surgical History (Updated 05/12/23 @ 19:24 by Bonny King NP) H/O hernia repair Family History Family History (Updated 05/12/23 @ 19:25 by Bonny King NP) Unknown No problems noted. Social History Social History (Updated 05/12/23 @ 19:27 by Bonny King NP) Social History: The patient has 2 children. He lives alone and is . Patient is currently unemployed. He has a past history of fentanyl abuse. The patient continues to smoke at least a pack a cigarettes a day. The patient stated that he did not use any IV drugs rather he smoked them are started them. He denies any recent cocaine use. The patient admits to drinking 5 and half drinks of whiskey 3 times a week. He does not have a durable power research attorney for healthcare Code status full code Smoking packs per day: 1 Smoking cigarettes per day: 20.0 Years smoked: 28 Smoking pack-years: 28.00 Smoking status: Current every day smoker Tobacco type: cigarettes Drinks per week: 60 Substance use: current Substance use type: marijuana Other substance usage details: 12 shots of 99proof wiskey every other day. Last use: MJ few weeks ago. ETOH 05/10/23 Lack of Transportation: No Lack of Food: Often True Current Housing: I Have Housing Concerned About Future Housing: YES Difficulty Paying Gas/Electric Bills: No Difficulty Paying for Meds: No Currently Unemployed: YES Education: Grade School Difficulty w/ Childcare or Family Care: No Spiritual care concerns: No Exam Narrative: APPEARANCE: Ill-appearing HEAD: normocephalic, atraumatic. EYES: Scleral icterus NOSE: Normal no drainage EARS:TMS clear with good light reflex. THROAT: Pharynx clear, no exudate. NECK: Supple. No adenopathy, no masses. RESPIRATORY: Airway patent, respirations nonlabored. Clear to auscultation bilaterally, no rales, rhonchi, wheezing. CARDIOVASCULAR: Atrial fibrillation with rapid ventricular response ABDOMINAL: Soft, nontender, nondistended, normal bowel sounds MUSCULOSKELETAL: Lower extremity edema with skin breakdown bilaterally NEURO: Alert. Cranial nerves II through XII intact. Grossly intact SKIN: Warm, dry. Normal Color Course Course Emergency Course: 42-year-old male presented ED for evaluation of A-fib with RVR. Patient does have a prior echocardiogram showing an ejection fraction of 30-35. Patient was treated with with IV bolus of Cardizem and started on an IV drip and patient's pre
[2023-07-31] MEDS: dilTIAZem 100 MG/100 ML 100 MG/100 ML BAG IV CONT (14:45)
[2023-07-31 14:47] LABS: Troponin I 0.013 ng/mL (0.000-0.034)
[2023-07-31 14:47] LABS: INR 1.6; Prothrombin Time 19.8 Seconds (11.1-14.7)
[2023-07-31 14:48] LABS: Partial Thromboplastin Time 32.9 SECONDS (22.3-36.8)
[2023-07-31 14:51] LABS: Macrocytosis 1+ (NORMAL); Platelet Estimate Adequate (Adequate)
[2023-07-31 14:52] LABS: Ovalocytes 1+ (NORMAL); Schistocytes None Seen (NORMAL)
[2023-07-31 15:32] LABS: Ethanol 58 mg/dL (<10)
--- NOTE | 2023-07-31 17:37 | PM.IMHP ---
H&P: HPI History of Present Illness Date/Time: 07/31/23 17:00 Chief Complaint: Rapid heart rate. Narrative: This is a 42-year-old male with longstanding history of alcohol abuse, fentanyl use, alcoholic cirrhosis, paroxysmal atrial fibrillation, congestive heart failure, cardiomyopathy with recent ejection fraction of 30 to 35% who presented to the emergency department from his doctor's office for evaluation of rapid heart rate. The patient provides the following history. He is known to the hospitalist service from an admission in May at which time he was admitted with shortness of breath. He was diagnosed with atrial fibrillation and cardiomyopathy with an EF of 30 to 35%. He was not started on anticoagulation given his history of cirrhosis an ongoing drug abuse. He was hospitalized recently at [facility] under similar circumstances and he was discharged from there just a week ago. I am not clear on whether or not he has filled all of his medications and he did not take any of them today. He had a follow-up appointment with his doctor this afternoon, was found to have a rapid heart rate, was directed to the emergency department. He does not feel his heart racing or skipping beats but he does feel a bit short of breath. Other than that he does not really have any complaints aside from his chronic issues (chronic jaundice, abdominal swelling, and edema). In the ED: Heart rate was in the 140s on arrival and he was in atrial fibrillation. He was started on a Cardizem drip with minimal improvement. Labs were significant for a WBC count of 12.5, platelet 147, INR 1.6, sodium 136, potassium 4.7, total bilirubin 8.1, AST 133, alkaline phosphatase 152, lipase 316, ethyl alcohol 58. Chest x-ray showed no acute cardiopulmonary process. He is being admitted in this setting with AFib/RVR. Review of Systems Review of Systems: Twelve systems were reviewed. He denies fever, chills, sweats. No recent cold or flu symptoms. He has had a bit of a cough but it is nonproductive. This morning he vomited because he was coughing up some much phlegm from postnasal drip. He has diarrhea but attributes that to lactulose and so he stopped taking that and the diarrhea resolved. He continues to drink, reportedly 3 1/5th of alcohol a week. He has a history of alcohol withdrawals symptoms but denies history of seizures. Except as documented, all other systems were reviewed and are negative. [facility] Past Medical History Medical History (Updated 08/01/23 @ 13:49 by Kyung Damon PA-C) Alcohol abuse Cardiomyopathy Depression with anxiety Fentanyl use disorder, mild, abuse Hypertension Insomnia Nicotine abuse Pneumonia Psoriasis Surgical History Surgical History (Updated 08/01/23 @ 13:49 by Kyung Damon PA-C) History of hernia repair Family History Family History (Updated 07/31/23 @ 21:37 by Inderjit Perales RN) Unknown No problems noted. Mother Drug overdose Social History Social History (Updated 08/01/23 @ 13:51 by Kyung Damon PA-C) Social History: Surrogate medical decision maker: Teri Ordonezricks, ex-. Code status: Fall code. Smoking packs per day: 1 Smoking cigarettes per day: 20.0 Years smoked: 28 Smoking pack-years: 28.00 Smoking status: Current every day smoker Tobacco type: cigarettes Alcohol intake: current Drinks per week: 48 Substance use: current Substance use type: marijuana and opiates Lack of Transportation: No Lack of Food: Sometimes True Current Housing: I Have Housing Concerned About Future Housing: YES Difficulty Paying Gas/Electric Bills: No Difficulty Paying for Meds: No Currently Unemployed: No Education: Grade School Difficulty w/ Childcare or Family Care: No Additional living arrangements comments: . Lives alone in [place]. He has 2 children. Additional occupation/education comments: Not currently employed. Spiritual care concerns:
[2023-07-31 17:52] LABS: Troponin I < 0.012 ng/mL (0.000-0.034)
[2023-07-31] MEDS: HYDROmorphone HCL INJ (*CRX) 1 MG/ML SYR 0.5 MG IV PUSH (18:15)
[2023-07-31 20:39] LABS: Troponin I < 0.012 ng/mL (0.000-0.034)
--- NOTE | 2023-07-31 21:27 | ADMGEN ---
This patient, Vincent Rivera, was admitted to IMU Room 204-01. Patient/family oriented to hospital policies and general routines including ID bracelet, bed and alarms, visiting hours, pain management, procedures, bathroom and other care routines, personal items, smoking policy, room service/diet, and visiting hours. Information on how to activate the Rapid Response Team has been discussed. Patient/Family are encouraged to report perceived risks to care and to ask questions if they do not understand what they are told or what they should do.
[2023-07-31 21:46] LABS: Digoxin < 0.5 ng/mL (0.8-2.0)
[2023-07-31] MEDS: METOPROLOL TARTRATE 25 MG TABLET PO (21:47)
[2023-07-31] MEDS: ceFAZolin 1 GM/NS 50 ML 1 GM/50 ML BAG IVPB (21:48)
[2023-07-31] MEDS: NICOTINE (*PBKC) 21 MG PATCH 1 PATCH TRANSDERM (23:05)
[2023-07-31] MEDS: CLOBETASOL PROPIONATE 0.05% OINT 30 GM 1 APPLIC TOPICAL (23:05)
[2023-08-01] VITALS (18 sets, daily range): BP systolic 102–120; BP diastolic 53–84; PULSE 68–103; RESP 16–20; TEMP 35.7–36.5; O2SAT 93–100
[2023-08-01] MEDS: MIRTAZAPINE 15 MG TABLET PO ×2 (00:24→20:57)
[2023-08-01] MEDS: ceFAZolin 1 GM/NS 50 ML 1 GM/50 ML BAG IVPB ×3 (05:30→20:56)
[2023-08-01 05:39] LABS: Hematocrit 32.1 % (42.0-52.0); Hemoglobin 11.2 g/dL (14.0-18.0); Immature Platelet Fraction Pct 7.6 % (0.9-11.2); Mean Corpuscular HGB Conc 34.9 g/dl (32-36); Mean Corpuscular Hemoglobin 39.2 pg (26-34); Mean Corpuscular Volume 112.2 fl (80-100); Mean Platelet Volume 11.8 fl (7.4-10.4); Platelet Count Result 115 k/mm3 (150-375); Red Blood Count 2.86 M/mm3 (4.6-6.20); Red Cell Distribution Width 16.5 % (11.5-14.5); White Blood Count 6.8 K/mm3 (4.5-10.0)
[2023-08-01 05:46] LABS: INR 1.6; Prothrombin Time 20.4 Seconds (11.1-14.7)
[2023-08-01 05:47] LABS: Partial Thromboplastin Time 36.4 SECONDS (22.3-36.8)
[2023-08-01 06:00] LABS: Alanine Aminotransferase 33 U/L (6-50); Albumin Level 2.7 g/dL (3.5-5.1); Alkaline Phosphatase 154 U/L (38-126); Anion Gap 3 mmol/L (8-16); Aspartate Amino Transferase 104 U/L (17-59); Bilirubin,Total 8.2 mg/dL (0.2-1.3); Blood Urea Nitrogen 10 mg/dL (9-20); Calcium 7.7 mg/dL (8.4-10.2); Carbon Dioxide 26 mmol/L (22-30); Chloride 107 mmol/L (98-107); Estimated CRCL calculation 169 ml/min; Estimated Glomerular Filt Rate > 60; Glucose 106 mg/dL (65-110); Magnesium 1.4 mg/dL (1.6-2.3); Potassium 4.2 mmol/L (3.4-5.0); Sodium 136 mmol/L (137-145)
[2023-08-01] MEDS: CLOBETASOL PROPIONATE 0.05% OINT 30 GM 1 APPLIC TOPICAL ×3 (10:02→20:56)
[2023-08-01] MEDS: FOLIC ACID 1 MG TABLET PO (10:02)
[2023-08-01] MEDS: THIAMINE HCL 100 MG TABLET PO (10:02)
[2023-08-01] MEDS: NICOTINE (*PBKC) 21 MG PATCH 1 PATCH TRANSDERM (10:02)
--- NOTE | 2023-08-01 16:26 | PM.IMPN ---
Progress Note: A&P Assessment and Plan (1) Atrial fibrillation with rapid ventricular response: Code(s): I48.91 - Unspecified atrial fibrillation Status: Acute (2) Cardiomyopathy: Code(s): I42.9 - Cardiomyopathy, unspecified Status: Acute (3) Alcoholic cirrhosis of liver with ascites: Code(s): K70.31 - Alcoholic cirrhosis of liver with ascites Status: Acute (4) Macrocytic anemia: Code(s): D53.9 - Nutritional anemia, unspecified Status: Acute (5) Leg ulcer: Code(s): L97.909 - Non-pressure chronic ulcer of unspecified part of unspecified lower leg with unspecified severity Status: Acute Plan The patient presented to the emergency department from his doctor's office for evaluation of rapid heart rate found to be in atrial fibrillation with rapid ventricular response. He is not very asymptomatic with that aside from mild shortness of breath. He was started on a diltiazem drip in the ED without much benefit. He did not take his beta-carli this morning and he will be given his dose of metoprolol this evening. AFib with RVR has since then improved his Cardizem drip has been discontinued reduced EF. He has ongoing anasarca with ascites and lower extremity edema involving his scrotum. IV Lasix ordered. Continue spironolactone. He also is going for therapeutic paracentesis. He has chronic ulcerations on his legs, 1 of which is weeping on the right calf. Cannot rule out underlying infection and hence started on cefazolin. He has chronic alcoholic liver disease with chronic jaundice, thrombocytopenia, and macrocytic anemia all of which are stable. Chronic alcohol use. History of alcohol withdrawal symptoms. Started on CIWA protocol. Subjective Date/time seen: 08/01/23 16:26 Interval history: Patient is scheduled to go to get paracentesis done. Denies any new complaint. Shortness of breath on exertion. Continues to drink alcohol. Review of Systems Review of Systems: All systems reviewed & are unremarkable except as noted in HPI and below Objective Data Vital Signs Vital Signs: Vital Signs - 24 hr 07/31/23 16:36 07/31/23 17:13 07/31/23 16:30 Temperature Pulse Rate 115 H 95 121 H Respiratory Rate 22 H 23 H 25 H Blood Pressure 120/66 122/83 Pulse Oximetry 98 97 95 Oxygen Delivery 07/31/23 16:31 07/31/23 16:52 07/31/23 17:00 Temperature Pulse Rate 120 H 120 H Respiratory Rate 24 H 16 20 Blood Pressure 120/66 Pulse Oximetry 95 100 99 Oxygen Delivery 07/31/23 17:11 07/31/23 17:12 07/31/23 17:16 Temperature Pulse Rate 110 H 85 118 H Respiratory Rate 21 H 20 23 H Blood Pressure 122/83 Pulse Oximetry 98 97 97 Oxygen Delivery 07/31/23 17:33 07/31/23 17:41 07/31/23 17:45 Temperature Pulse Rate 109 H 125 H Respiratory Rate 26 H 25 H 25 H Blood Pressure 140/81 Pulse Oximetry 95 95 96 Oxygen Delivery 07/31/23 18:07 07/31/23 18:17 07/31/23 18:21 Temperature Pulse Rate 124 H 122 H Respiratory Rate 25 H 22 H 17 Blood Pressure 136/87 Pulse Oximetry 94 96 96 Oxygen Delivery 07/31/23 18:22 07/31/23 18:30 07/31/23 18:31 Temperature Pulse Rate 126 H 127 H 120 H Respiratory Rate 18 23 H 18 Blood Pressure 116/81 Pulse Oximetry 97 95 96 Oxygen Delivery 07/31/23 18:45 07/31/23 18:51 07/31/23 19:00 Temperature Pulse Rate 120 H 119 H 113 H Respiratory Rate 23 H 16 21 H Blood Pressure 130/79 Pulse Oximetry 97 97 97 Oxygen Delivery 07/31/23 19:01 07/31/23 19:11 07/31/23 19:16 Temperature Pulse Rate 119 H 126 H 122 H Respiratory Rate 18 15 15 Blood Pressure 114/75 122/89 Pulse Oximetry 96 97 97 Oxygen Delivery 07/31/23 19:42 07/31/23 19:45 07/31/23 20:03 Temperature Pulse Rate 119 H 115 H 115 H Respiratory Rate 14 16 14 Blood Pressure 46/23 L Pulse Oximetry 98 99 Oxygen Delivery 07/31/23 20:15 07/31/23 20:30 07/31/23 20:31 Temperature
[2023-08-01] MEDS: DIGOXIN 250 MCG TABLET PO (17:51)
[2023-08-02] VITALS (16 sets, daily range): BP systolic 101–126; BP diastolic 69–92; PULSE 78–124; RESP 16–20; TEMP 36.1–37; O2SAT 94–98
[2023-08-02] MEDS: ceFAZolin 1 GM/NS 50 ML 1 GM/50 ML BAG IVPB ×3 (04:29→21:11)
[2023-08-02 05:32] LABS: Basophils Percent Auto 0.5 % (0.2-1.2); Eosinophils Percent Auto 0.5 % (0-4.4); Hematocrit 33.9 % (42.0-52.0); Hemoglobin 11.8 g/dL (14.0-18.0); Immature Granulocyte Absolute 0.06 K/mm3 (0.00-0.031); Lymphocytes Absolute Auto 0.95 K/mm3 (0.9-3.2); Lymphocytes Percent Auto 15.8 % (18.3-44.2); Mean Corpuscular HGB Conc 34.8 g/dl (32-36); Mean Corpuscular Hemoglobin 39.2 pg (26-34); Mean Corpuscular Volume 112.6 fl (80-100); Mean Platelet Volume 11.8 fl (7.4-10.4); Monocytes Absolute Auto 0.4 K/mm3 (0.1-0.6); Neutrophils Absolute Auto 4.6 K/mm3 (1.3-6.7); Neutrophils Percent Auto 76.2 % (45.5-73.1); Platelet Count Result 113 k/mm3 (150-375); Red Blood Count 3.01 M/mm3 (4.6-6.20)
[2023-08-02 05:41] LABS: Alanine Aminotransferase 28 U/L (6-50); Albumin Level 2.7 g/dL (3.5-5.1); Alkaline Phosphatase 170 U/L (38-126); Anion Gap 3 mmol/L (8-16); Aspartate Amino Transferase 88 U/L (17-59); Bilirubin,Total 5.7 mg/dL (0.2-1.3); Blood Urea Nitrogen 11 mg/dL (9-20); Calcium 7.9 mg/dL (8.4-10.2); Carbon Dioxide 24 mmol/L (22-30); Chloride 107 mmol/L (98-107); Estimated CRCL calculation 166 ml/min; Estimated Glomerular Filt Rate > 60; Glucose 151 mg/dL (65-110); Magnesium 1.6 mg/dL (1.6-2.3); Potassium 4.4 mmol/L (3.4-5.0); Sodium 134 mmol/L (137-145)
[2023-08-02 06:08] LABS: Platelet Estimate Decreased (Adequate)
[2023-08-02 06:09] LABS: Anisocytosis 1+ (NORMAL); Macrocytosis 2+ (NORMAL); Schistocytes None Seen (NORMAL)
[2023-08-02] MEDS: METOPROLOL TARTRATE INJ 5 MG/5 ML VIAL IV PUSH (08:40)
[2023-08-02] MEDS: FOLIC ACID 1 MG TABLET PO (08:41)
[2023-08-02] MEDS: NICOTINE (*PBKC) 21 MG PATCH 1 PATCH TRANSDERM (08:41)
[2023-08-02] MEDS: THIAMINE HCL 100 MG TABLET PO (08:41)
[2023-08-02] MEDS: EMPAGLIFLOZIN 10 MG TABLET PO (08:41)
[2023-08-02] MEDS: SPIRONOLACTONE 25 MG TABLET PO (08:41)
[2023-08-02] MEDS: DIGOXIN 250 MCG TABLET PO (08:41)
[2023-08-02] MEDS: lisinopriL 2.5 MG TABLET PO (08:41)
[2023-08-02] MEDS: METOPROLOL SUCCINATE EXT REL 12.5 MG TABCR PO (08:41)
[2023-08-02] MEDS: CLOBETASOL PROPIONATE 0.05% OINT 30 GM 1 APPLIC TOPICAL ×4 (08:42→21:29)
--- NOTE | 2023-08-02 09:53 | PM.IMPN ---
Progress Note: A&P Assessment and Plan (1) Atrial fibrillation with rapid ventricular response: Code(s): I48.91 - Unspecified atrial fibrillation Status: Acute (2) Cardiomyopathy: Code(s): I42.9 - Cardiomyopathy, unspecified Status: Acute (3) Alcoholic cirrhosis of liver with ascites: Code(s): K70.31 - Alcoholic cirrhosis of liver with ascites Status: Acute (4) Macrocytic anemia: Code(s): D53.9 - Nutritional anemia, unspecified Status: Acute (5) Leg ulcer: Code(s): L97.909 - Non-pressure chronic ulcer of unspecified part of unspecified lower leg with unspecified severity Status: Acute Plan AFib RVR The patient presented to the emergency department from his doctor's office for evaluation of rapid heart rate found to be in atrial fibrillation with rapid ventricular response. He is not very asymptomatic with that aside from mild shortness of breath. He was started on a diltiazem drip in the ED without much benefit. He did not take his beta-carli this morning and he will be given his dose of metoprolol this evening. AFib with RVR has since then improved his Cardizem drip has been discontinued reduced EF. Rate still not controlled, may start digoxin Consult cardiology for evaluation treatment Acute on chronic systolic heart failure EF 30 35%, diastolic dysfunction is present on echocardiogram May He has ongoing anasarca with ascites and lower extremity edema involving his scrotum. IV Lasix ordered. Continue spironolactone. Cellulitis of lower extremities He has chronic ulcerations/broken skin on his legs, 1 of which is weeping on the right calf. Possible cellulitis new started on cefazolin, Alcoholic liver cirrhosis with ascites He has chronic alcoholic liver disease with chronic jaundice, thrombocytopenia, and macrocytic anemia all of which are stable. Patient had therapeutic paracentesis 08/01. Chronic alcohol use. Some tenderness of abdomen Possible SBP And Flagyl IV Consult GI for evaluation treatment History of alcohol withdrawal symptoms. Started on CIWA protocol. Subjective Date/time seen: 08/02/23 09:53 Interval history: I saw and examined patient today. Patient still has palpitation and short of breath. Patient underwent paracentesis, 3.7 5 L fluid was removed. Patient was found have uncontrolled AFib in the morning. Patient has some abdominal discomfort Exam Narrative: GENERAL: Ill-appearing, in no acute distress. Well-nourished. - EYES: EOMI. Anicteric. - HENT: Moist mucous membranes. - LUNGS: Clear to auscultation bilaterally, no wheezing, rhonchi, or rales. - CARDIOVASCULAR: Irregularly irregular rhythm, tachycardia, no murmur. No JVD. - ABDOMEN: Soft, some tender and moderate to severe assisted . No palpable masses. - EXTREMITIES: No edema. Peripheral pulses 2+. Non-tender. - NEUROLOGIC: No focal neurological deficits. CN II-XII grossly intact. - PSYCHIATRIC: Awake, Alert and oriented x 3. Appropriate mood and affect. - SKIN: Redness, tender, erythema of both lower extremity, prominent right lower extremity - LYMPH: No cervical lymphadenopathy.. Objective Data Vital Signs Vital Signs: Vital Signs - 24 hr 08/01/23 11:39 08/01/23 10:00 08/01/23 12:00 Temperature 97 F L Pulse Rate 83 82 81 Respiratory Rate 20 Blood Pressure 103/53 L Pulse Oximetry 95 Oxygen Delivery 08/01/23 14:00 08/01/23 12:00 08/01/23 16:00 Temperature 97.3 F L Pulse Rate 76 88 Respiratory Rate 18 Blood Pressure 120/69 Pulse Oximetry 96 Oxygen Delivery Room Air 08/01/23 16:00 08/01/23 16:00 08/01/23 18:00 Temperature Pulse Rate 103 H 90 Respiratory Rate Blood Pressure Pulse Oximetry Oxygen Delivery Room Air 08/01/23 20:06 08/01/23 20:00 08/01/23 20:00 Temperature 97.4 F L Pulse Rate 88 88 96 Respiratory Rate 18 18 Blood Pressure 106/69 Pulse Oximetry 100
--- NOTE | 2023-08-02 10:39 | PM.CNCAR ---
Assessment and Plan Assessment and plan (1) Cardiomyopathy: Code(s): I42.9 - Cardiomyopathy, unspecified <JOYA Mccloud - Last Filed: 08/02/23 11:34> Status: Acute <Lyn Emelyn JOYA Zelaya - Last Filed: 08/02/23 11:34> Assessment and Plan: Severe cardiomyopathy with 30-35%. Probably nonischemic. He appears to be well compensated at this time. Continue GDMT with lisinopril 2.5 mg daily, Toprol XL 25 mg daily, spironolactone 25 mg daily, and Jardiance 10 mg daily. Up titration these medications as an outpatient as able. Referral to Cardiac rehab placed Close follow-up in our office. <JOYA Mccloud - Last Filed: 08/02/23 11:34> (2) Atrial fibrillation with rapid ventricular response: Code(s): I48.91 - Unspecified atrial fibrillation <JOYA Mccloud - Last Filed: 08/02/23 11:34> Status: Acute <JOYA Mccloud - Last Filed: 08/02/23 11:34> Assessment and Plan: Presented with atrial fibrillation with rapid ventricular response. Plan to continue rate control strategy. He is not a candidate for anticoagulation because liver cirrhosis and ongoing alcohol abuse. Therefore, cannot pursue cardioversion or other rhythm control strategy. Increase metoprolol succinate to 25 mg daily. Will discontinue digoxin since he cannot reliably have blood work done to monitor therapeutic levels of digoxin. He does remain at increased risk for cardioembolic event as we are unable to anticoagulate him. If heart rate remains adequately controlled throughout the day, consider discharge later this afternoon. <JOYA Mccloud - Last Filed: 08/02/23 11:34> (3) Congestive heart failure: Qualifiers: Heart failure chronicity: unspecified Heart failure type: unspecified Qualified Code(s): I50.9 - Heart failure, unspecified <JOYA Mccloud - Last Filed: 08/02/23 11:34> Code(s): I50.9 - Heart failure, unspecified <JOYA Mccloud - Last Filed: 08/02/23 11:34> Status: Acute <JOYA Mccloud - Last Filed: 08/02/23 11:34> Assessment and Plan: As above, he is relatively well compensated at this time. Monitor intake and output Daily weights CHF counseling <JOYA Mccloud - Last Filed: 08/02/23 11:34> Assessment and Plan: Attending addendum: I agree with the above documentation and plan of care as outlined. <Navin Belle MD - Last Filed: 08/02/23 13:12> History of Present Illness History of Present Illness Consult date/time: 08/02/23 10:39 <JOYA Mccloud - Last Filed: 08/02/23 11:34> Requesting physician: Elidia Covarrubias MD <JOYA Mccloud - Last Filed: 08/02/23 11:34> Consult reason: atrial fibrillation <JOYA Mccloud - Last Filed: 08/02/23 11:34> Reason For Visit: Afib with RVR/ Alcohol Intoxication <JOYA Mccloud - Last Filed: 08/02/23 11:34> Narrative: Vincent Rivera is a 42-year-old male with cardiomyopathy (EF 30-35%), atrial fibrillation, any polysubstance abuse. He was sent to the hospital from his primary care doctor's office because of atrial fibrillation with rapid ventricular response. He was initially diagnosed with atrial fibrillation back in May and was placed on metoprolol for rate control. He states that he has been compliant with his medications. He was also placed on digoxin during a recent hospitalization at [facility]. He states that generally he has been feeling very well since his discharge from the hospital and was going to his primary care doctor for regularly scheduled hospital follow-up when his tachycardia was noticed. He denies feeling any palpitations, shortness of breath, chest pain. Currently, he is resting comfortably in bed and does not have any complaints. His heart rate is controlled currently in the low 100s. <JOYA Mccloud - Last Filed: 08/02/23 11:34> PMFSH Past Medical H
[2023-08-02] MEDS: METOPROLOL TARTRATE 12.5 MG TABLET PO (11:45)
--- NOTE | 2023-08-02 15:57 | PC.NURSE ---
On 08/02/23, the student, Vin [facility]GU[facility], provided care and completed [facility] documentation on this patient. I have reviewed the student's documentation and agree with the findings.
[2023-08-02] MEDS: metroNIDAZOLE 500 MG/ISO 100ML 500 MG/100 ML BAG 100 MG IVPB ×2 (16:52→21:12)
[2023-08-02] MEDS: chlordiazePOXIDE (*CRX) 25 MG CAPSULE PO (21:11)
[2023-08-02] MEDS: MIRTAZAPINE 15 MG TABLET PO (21:11)
[2023-08-03] VITALS (8 sets, daily range): BP systolic 100–134; BP diastolic 59–85; PULSE 88–108; RESP 20–22; TEMP 36.2–36.3; O2SAT 93–100
[2023-08-03] MEDS: ceFAZolin 1 GM/NS 50 ML 1 GM/50 ML BAG IVPB (05:40)
[2023-08-03] MEDS: metroNIDAZOLE 500 MG/ISO 100ML 500 MG/100 ML BAG 100 MG IVPB (06:21)
[2023-08-03] MEDS: NICOTINE (*PBKC) 21 MG PATCH 1 PATCH TRANSDERM (08:56)
[2023-08-03] MEDS: lisinopriL 2.5 MG TABLET PO (08:57)
[2023-08-03] MEDS: THIAMINE HCL 100 MG TABLET PO (08:57)
[2023-08-03] MEDS: SPIRONOLACTONE 25 MG TABLET PO (08:57)
[2023-08-03] MEDS: METOPROLOL SUCCINATE EXT REL 25 MG TABCR PO (08:57)
[2023-08-03] MEDS: EMPAGLIFLOZIN 10 MG TABLET PO (08:57)
[2023-08-03] MEDS: FOLIC ACID 1 MG TABLET PO (08:57)
[2023-08-03] MEDS: CLOBETASOL PROPIONATE 0.05% OINT 30 GM 1 APPLIC TOPICAL ×2 (08:58)
--- NOTE | 2023-08-03 09:37 | PM.IMPN ---
Progress Note: A&P Assessment and Plan (1) Atrial fibrillation with rapid ventricular response: Code(s): I48.91 - Unspecified atrial fibrillation Status: Acute (2) Cardiomyopathy: Code(s): I42.9 - Cardiomyopathy, unspecified Status: Acute (3) Alcoholic cirrhosis of liver with ascites: Code(s): K70.31 - Alcoholic cirrhosis of liver with ascites Status: Acute (4) Macrocytic anemia: Code(s): D53.9 - Nutritional anemia, unspecified Status: Acute (5) Leg ulcer: Code(s): L97.909 - Non-pressure chronic ulcer of unspecified part of unspecified lower leg with unspecified severity Status: Acute Plan AFib RVR The patient presented to the emergency department from his doctor's office for evaluation of rapid heart rate found to be in atrial fibrillation with rapid ventricular response. He is not very asymptomatic with that aside from mild shortness of breath. He was started on a diltiazem drip in the ED without much benefit. He did not take his beta-carli this morning and he will be given his dose of metoprolol this evening. AFib with RVR has since then improved his Cardizem drip has been discontinued reduced EF. Consult cardiology for evaluation treatment I discussed with case with electric furnace operator Dr. Belle, Cardiology recommends to Increase metoprolol succinate to 50 mg daily, discontinue digoxin Now heart rate is controlled Acute on chronic systolic heart failure EF 30 35%, diastolic dysfunction is present on echocardiogram May He has ongoing anasarca with ascites and lower extremity edema involving his scrotum. IV Lasix ordered. with lisinopril 2.5 mg daily, Toprol XL 25 mg daily, spironolactone 25 mg daily, and Jardiance 10 mg daily.per electric furnace operator Cellulitis of lower extremities He has chronic ulcerations/broken skin on his legs, 1 of which is weeping on the right calf. Possible cellulitis new started on cefazolin, Alcoholic liver cirrhosis with ascites He has chronic alcoholic liver disease with chronic jaundice, thrombocytopenia, and macrocytic anemia all of which are stable. Patient had therapeutic paracentesis 08/01. Chronic alcohol use. Some tenderness of abdomen Possible SBP And added Flagyl IV Radiologist has performed paracentesis and reports?successful ultrasound-guided paracentesis yielding 3750 mL of cloudy yoanna-colored fluid. Patient has appointment with the GI doctor on Monday Patient request to be discharged today, will switch to Augmentin p.o. on discharge History of alcohol withdrawal symptoms. Started on CIWA protocol. Subjective Date/time seen: 08/03/23 09:37 Interval history: I saw and examined patient today. Patient feels better, heart rate is controlled, denies abdomen pain, nausea vomiting diarrhea. Labs reviewed, patient afebrile, blood pressure stable Exam Narrative: GENERAL: Ill-appearing, in no acute distress. Well-nourished. - EYES: EOMI. Anicteric. - HENT: Moist mucous membranes. - LUNGS: Clear to auscultation bilaterally, no wheezing, rhonchi, or rales. - CARDIOVASCULAR: Irregularly irregular rhythm, no murmur. No JVD. - ABDOMEN: Soft, no tender and moderate senior living . No palpable masses. - EXTREMITIES: No edema. Peripheral pulses 2+. Non-tender. - NEUROLOGIC: No focal neurological deficits. CN II-XII grossly intact. - PSYCHIATRIC: Awake, Alert and oriented x 3. Appropriate mood and affect. - SKIN: Redness, tender, erythema of both lower extremity, prominent right lower extremity - LYMPH: No cervical lymphadenopathy.. Objective Data Vital Signs Vital Signs: Vital Signs - 24 hr 08/02/23 10:00 08/02/23 11:39 08/02/23 12:00 Temperature 97.0 F L Pulse Rate 96 88 108 H Respiratory Rate 20 Blood Pressure 112/81 Pulse Oximetry 95 Oxygen Delivery 08/02/23 12:00 08/02/23 14:00 08/02/23 15:44 Temperature 98.5 F Pulse Rate 97 91 Respiratory Rate 17 Blood Pressure
--- NOTE | 2023-08-03 09:48 | PM.PNCARD ---
Progress Note: A&P Assessment and Plan (1) Cardiomyopathy: Code(s): I42.9 - Cardiomyopathy, unspecified Status: Acute Assessment and Plan: Severe cardiomyopathy with 30-35%. Probably nonischemic. He appears to be well compensated at this time. Continue GDMT with lisinopril 2.5 mg daily, Toprol XL 25 mg daily, spironolactone 25 mg daily, and Jardiance 10 mg daily. Can add Verquvo as outpatient if affordable Up titration these medications as an outpatient as able. Referral to Cardiac rehab placed Close follow-up in our office. (2) Atrial fibrillation with rapid ventricular response: Code(s): I48.91 - Unspecified atrial fibrillation Status: Acute Assessment and Plan: Presented with atrial fibrillation with rapid ventricular response. Plan to continue rate control strategy. He is not a candidate for anticoagulation because liver cirrhosis and ongoing alcohol abuse. Therefore, cannot pursue cardioversion or other rhythm control strategy. Continue metoprolol succinate to 25 mg daily. He does remain at increased risk for cardioembolic event as we are unable to anticoagulate him. (3) Congestive heart failure: Qualifiers: Heart failure chronicity: unspecified Heart failure type: unspecified Qualified Code(s): I50.9 - Heart failure, unspecified Code(s): I50.9 - Heart failure, unspecified Status: Acute Assessment and Plan: As above, he is relatively well compensated at this time. Plan Attending addendum: I agree with the above documentation and plan of care as outlined. Subjective Date/time seen: 08/03/23 09:48 Interval history: Cardiology follow up for atrial fibrillation, cardiomyopathy Feeling well this morning. Has no complaints. Heart rate better controlled. He is being discharged today. Exam Const: General: comfortable, no acute distress, alert and awake Orientation/consciousness: patient oriented x3 HENMT: Head: normal to inspection Eyes: General: appearance normal, both eyes and all related structures Pupils: Equal, round and reactive pupils present Neck: Neck: normal visual inspection, supple and no JVD Carotids: normal carotid upstroke Resp: Effort & Inspection: normal respiratory effort Auscultation: clear to auscultation bilaterally Cardio: Rate: regular rate Rhythm: regular rhythm and abnormal rhythm irregularly irregular Heart sounds: S1 normal heart sound present, S2 normal heart sound present and no murmurs GI: Auscultation: normal bowel sounds Skin: General skin exam: normal color and lesion (bilateral lower extremities) Lesions: lesion noted (bilateral lower extremities) Neuro: General: patient oriented x3 Cranial nerves: Yes Equal, round and reactive pupils present Extrem: General: abnormal to inspection Other: chronic mild lower extremity edema with skin hyperpigmentation Psych: Appearance: grossly normal Mental Status: mental status grossly normal Objective Data Vital Signs Vital Signs: Vital Signs - 24 hr 08/02/23 10:00 08/02/23 11:39 08/02/23 12:00 Temperature 36.1 C L Pulse Rate 96 88 108 H Respiratory Rate 20 Blood Pressure 112/81 Pulse Oximetry 95 Oxygen Delivery 08/02/23 12:00 08/02/23 14:00 08/02/23 15:44 Temperature 36.9 C Pulse Rate 97 91 Respiratory Rate 17 Blood Pressure 121/71 Pulse Oximetry 96 Oxygen Delivery Room Air 08/02/23 16:00 08/02/23 16:00 08/02/23 18:00 Temperature Pulse Rate 92 94 Respiratory Rate Blood Pressure Pulse Oximetry Oxygen Delivery Room Air 08/02/23 20:25 08/02/23 20:00 08/02/23 20:00 Temperature 36.3 C L Pulse Rate 78 99 Respiratory Rate 20 Blood Pressure 114/81 Pulse Oximetry 97 Oxygen Delivery Room Air 08/02/23 22:00 08/02/23 23:55 08/03/23 00:00 Temperature 36.2 C L Pulse Rate 98 97 99 Respiratory Rate 16 Blood Pressure 101/69 Pulse Oximetry 94 Oxygen Deliver
--- NOTE | 2023-08-03 10:58 | PM.DS ---
DS: Admitting Diagnosis Discharge Date Today Admitting Diagnosis (1) Atrial fibrillation with rapid ventricular response: ?Code(s): I48.91 - Unspecified atrial fibrillation ?Status:?Acute (2) Cardiomyopathy: ?Code(s): I42.9 - Cardiomyopathy, unspecified ?Status:?Acute (3) Alcoholic cirrhosis of liver with ascites: ?Code(s): K70.31 - Alcoholic cirrhosis of liver with ascites ?Status:?Acute (4) Macrocytic anemia: ?Code(s): D53.9 - Nutritional anemia, unspecified ?Status:?Acute (5) Leg ulcer: ?Code(s): L97.909 - Non-pressure chronic ulcer of unspecified part of unspecified lower leg with unspecified severity ?Status:?Acute DS: Discharge Diagnosis Discharge Diagnosis (1) Atrial fibrillation with rapid ventricular response: Code(s): I48.91 - Unspecified atrial fibrillation Status: Acute (2) Cardiomyopathy: Code(s): I42.9 - Cardiomyopathy, unspecified Status: Acute (3) Alcoholic cirrhosis of liver with ascites: Code(s): K70.31 - Alcoholic cirrhosis of liver with ascites Status: Acute (4) Macrocytic anemia: Code(s): D53.9 - Nutritional anemia, unspecified Status: Acute (5) Leg ulcer: Code(s): L97.909 - Non-pressure chronic ulcer of unspecified part of unspecified lower leg with unspecified severity Status: Acute (6) SBP (spontaneous bacterial peritonitis): Code(s): K65.2 - Spontaneous bacterial peritonitis Status: Acute (7) Ascites: Code(s): R18.8 - Other ascites Status: Acute Plan . DS: Summary Hospital Course Hospital Course: Per H&P, this is a 42-year-old male with longstanding history of alcohol abuse, fentanyl use, alcoholic cirrhosis, paroxysmal atrial fibrillation, congestive heart failure, cardiomyopathy with recent ejection fraction of 30 to 35% who presented to the emergency department from his doctor's office for evaluation of rapid heart rate. The patient provides the following history. He is known to the hospitalist service from an admission in May at which time he was admitted with shortness of breath. He was diagnosed with atrial fibrillation and cardiomyopathy with an EF of 30 to 35%. He was not started on anticoagulation given his history of cirrhosis an ongoing drug abuse. He was hospitalized recently at [facility] under similar circumstances and he was discharged from there just a week ago. . He had a follow-up appointment with his doctor this afternoon, was found to have a rapid heart rate, was directed to the emergency department. He does not feel his heart racing or skipping beats but he does feel a bit short of breath. Other than that he does not really have any complaints aside from his chronic issues (chronic jaundice, abdominal swelling, and edema). In the ED: Heart rate was in the 140s on arrival and he was in atrial fibrillation. He was started on a Cardizem drip with minimal improvement. Labs were significant for a WBC count of 12.5, platelet 147, INR 1.6, sodium 136, potassium 4.7, total bilirubin 8.1, AST 133, alkaline phosphatase 152, lipase 316, ethyl alcohol 58. Chest x-ray showed no acute cardiopulmonary process. He is being admitted in this setting with AFib/RVR. The following medical issues have been addressed during hospitalization AFib RVR The patient presented to the emergency department from his doctor's office for evaluation of rapid heart rate found to be in atrial fibrillation with rapid ventricular response. He is not very asymptomatic with that aside from mild shortness of breath. He was started on a diltiazem drip in the ED without much benefit. AFib with RVR has since then improved his Cardizem drip has been discontinued reduced EF. Consult cardiology for evaluation treatment I discussed with case with certified travel counselor Dr. Belle, Cardiology recommends to Increase metoprolol succinate to 50 mg daily, discontinue digoxin Now heart rate is contr
== END 2023-08-03 12:23 | disposition home or self-care (01) | DRG 201 ==
LOC: ANHED 19:39 → ANHIMU 20:29
PROVIDERS: Internal Medicine; Physician Assistant; Admitting Provider Chiropractor; Emergency Provider Emergency Medicine; Visit Provider Hospitalist
DX: I48.0 Paroxysmal atrial fibrillation (principal); I50.23 Acute on chronic systolic (congestive) heart failure; K65.2 Spontaneous bacterial peritonitis; K70.31 Alcoholic cirrhosis of liver with ascites; I42.8 Other cardiomyopathies; L03.115 Cellulitis of right lower limb; D69.59 Other secondary thrombocytopenia; L97.819 Non-pressure chronic ulcer of other part of right lower leg with unspecified severity; D53.9 Nutritional anemia, unspecified; F41.8 Other specified anxiety disorders; F11.90 Opioid use, unspecified, uncomplicated; F17.210 Nicotine dependence, cigarettes, uncomplicated; L97.829 Non-pressure chronic ulcer of other part of left lower leg with unspecified severity
CPT/HCPCS: 36415; 49083; 71045; 80053; 80162; 80307; 83690; 83735; 84484; 85025; 85027; 85055; 85610; 85730; 93005; 93970; 96361; 96365; 96366; 96374; 96375; 99285; A9270; G0378; G0379; J0690; J1170; J1836; J3411; J7030